=== PATIENT | male | born 1985 | race Caucasian/White ===

== ENCOUNTER 2016-11-17 21:01 | Emergency (ER) | payer OTHER ==
[~2016-11-17] VITALS: Ht 175.3 cm; Wt 55.6 kg
[~2016-11-17 21:01] MED LIST: ALBU18HF IH; BENZ100C PO; CLIN300C8 PO; CYCL-331 PO; CYCL5TAB PO; ERYT1OIN6 OD; HYDR-971 PO; TRAM50TA PO
[2016-11-17 21:15] VITALS: BP 131/89
--- NOTE | 2016-11-18 00:56 | ED.ADGEN ---
Past History Past Medical History: Anxiety, Bronchitis, Migraines Past Surgical History: Other Smoking: Cigarettes Alcohol Use: None Drug Use: None Adult General Chief Complaint Chief Complaint Dizziness HPI HPI Patient is a 31-year-old male with history of anxiety presents with dizziness while out this evening. Patient states he felt near syncopal with blurred vision while playing pool and a [place]. Patient was outdoors in a cool or worse symptoms improved. They have continued to improve while in the emergency department. No history of diabetes or hypoglycemia. Patient denies chest pain, chest tightness and palpitations. History of tension headaches. Patient reports mild headache which started after ED arrival. No other symptoms or complaints. Review of Systems Review of Systems Review symptoms as per history of present illness. Allergies Allergies Allergies Coded Allergies Type Severity Reaction Last Updated Verified Penicillins Allergy Intermediate Swelling 10/06/13 Yes amoxicillin Allergy Intermediate tongue swells up/SOA/Rash 10/06/13 Yes Physical Exam Physical Exam Constitutional: Well developed, well nourished, no acute distress, non-toxic appearance. [] HENT: Normocephalic, atraumatic, bilateral external ears normal, oropharynx moist, no oral exudates, nose normal. [] Eyes: PERRLA, EOMI, conjunctiva normal, no discharge. [] Neck: Normal range of motion, no tenderness, supple, no stridor. [] Cardiovascular:Heart rate regular rhythm, no murmur [] Lungs & Thorax: Bilateral breath sounds clear to auscultation [] Abdomen: Bowel sounds normal, soft, no tenderness, no masses, no pulsatile masses. [] Skin: Warm, dry, no erythema, no rash. [] Back: No tenderness, no CVA tenderness. [] Extremities: No tenderness, no cyanosis, no clubbing, ROM intact, no edema. [] Neurologic: Alert and oriented X 3, normal motor function, normal sensory function, no focal deficits noted. [] Psychologic: Affect normal, judgement normal, mood normal. [] Current Patient Data Vital Signs Vital Signs Date Time Temp Pulse Resp B/P (MAP) Pulse Ox O2 Delivery O2 Flow Rate FiO2 11/17/16 21:15 97.7 94 12 100 Room Air Lab Results Laboratory Tests Test 11/17/16 21:33 Glucose (Fingerstick) 93 mg/dL (70-99) EKG EKG [EKG: Normal sinus rhythm, no acute ST-T wave changes, rate 83.] Radiology/Procedures Radiology/Procedures [] Course & Med Decision Making Course & Med Decision Making Pertinent Labs and Imaging studies reviewed. (See chart for details) [EKG and blood sugar reassuring. Patient minimally symptomatic in the ED. No comorbidities, denies drug use. Recommend home rest increase fluids and PCP follow-up if symptoms persist. Return precautions reviewed.] Final Impression Final Impression [1 dizziness] Problems: Dragon Disclaimer Dragon Disclaimer This electronic medical record was generated, in whole or in part, using a voice recognition dictation system. SILVANO MIDDLETON DO November 18, 2016 00:56
--- NOTE | 2016-11-18 01:36 | EKG ---
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
== END 2016-11-17 22:14 | disposition home or self-care (01) ==
LOC: ER 21:01
DX: R42 Dizziness and giddiness (principal); F41.9 Anxiety disorder, unspecified; G43.909 Migraine, unspecified, not intractable, without status migrainosus; F17.210 Nicotine dependence, cigarettes, uncomplicated; Z88.1 Allergy status to other antibiotic agents; Z88.0 Allergy status to penicillin
CPT/HCPCS: 82947; 93005; 99283-25

== ENCOUNTER 2016-11-20 13:08 | Emergency (ER) | payer OTHER ==
[~2016-11-20] VITALS: Ht 175.3 cm; Wt 55.6 kg
[2016-11-20 13:17] VITALS: BP 110/58
--- NOTE | 2016-11-20 13:39 | ED.ADGEN ---
Past History Past Medical History: Anxiety, Bronchitis, Migraines Past Surgical History: Other Smoking: Cigarettes Alcohol Use: None Drug Use: None Adult General HPI HPI Patient is a [31-year-old man, history of migraine headaches, anxiety, bronchitis, tobacco abuse, who presents to the emergency department with complaint of pleuritic chest pain that began this morning, associated with lightheadedness, dizziness and mild shortness of breath. Patient states that he has been feeling lightheaded and slightly dizzy since Sunday, he was seen in the emergency department on Sunday at [facility], at that time he received ECG, and neck checked was unremarkable, as is feeling better he was discharged home. He states that he began experiencing a sharp shooting chest pain located in the center of his chest related to left-sided his chest around 9 :30 this morning, which was intermittent, was worsened with inspiration, and was associated with similar symptoms that he experienced since Sunday. He denies any focal weakness, numbness, tingling, any injuries, any nausea or vomiting, any swelling extremities, any drug or alcohol abuse, any GI or complaints. States he experienced similar symptoms about 2 years ago, at that time he was told he was experiencing symptoms due to an anxiety attack. He states he is not feeling anxious at this time. Patient was given 324 mg of chewable aspirin by EMS en route to the emergency department. He states that he felt very lightheaded shortly before EMS was contacted, although he did not actually pass out, he did "fall back against the wall". No seizure activity, no other complaints. He has not taken any other medications prior to coming to the ED. No recent travel or surgery, no history of DVT or PE in himself or family members, no history of early cardiac disease or sudden cardiac in family members. Review of Systems Review of Systems Constitutional: Denies fever or chills [] Eyes: Denies change in visual acuity, redness, or eye pain [] HENT: Denies nasal congestion or sore throat [] Respiratory: Denies cough, complaining of mild shortness of breath associated with sharp chest pain and is pleuritic in nature.] Cardiovascular: Chest pain located in the left and middle chest, worse with deep inspiration, nonradiating. GI: Denies abdominal pain, nausea, vomiting, bloody stools or diarrhea [] : Denies dysuria or hematuria [] Musculoskeletal: Denies back pain or joint pain [] Integument: Denies rash or skin lesions [] Neurologic: Denies headache, focal weakness or sensory changes [] Endocrine: Denies polyuria or polydipsia [] Current Medications Current Medications Current Medications Medications (Trade) Dose Ordered Sig/Alexei Start Time Stop Time Status Last Admin Dose Admin Fentanyl Citrate (Fentanyl 2ml Vial) 25 mcg PRN Q15MIN PRN 11/20/16 13:45 11/21/16 13:44 11/20/16 16:01 25 MCG Naproxen (Naprosyn) 250 mg 1X ONCE 11/20/16 16:45 11/20/16 16:46 Nitroglycerin (Nitrostat) 0.4 mg 1X ONCE 11/20/16 13:45 11/20/16 13:46 DC Allergies Allergies Allergies Coded Allergies Type Severity Reaction Last Updated Verified Penicillins Allergy Intermediate Swelling 10/06/13 Yes amoxicillin Allergy Intermediate tongue swells up/SOA/Rash 10/06/13 Yes Physical Exam Physical Exam Constitutional: Well developed, well nourished, no acute distress, non-toxic appearance. [] HENT: Normocephalic, atraumatic, bilateral external ears normal, oropharynx moist, no oral exudates, nose normal. [] Eyes: PERRLA, EOMI, conjunctiva normal, no discharge. [] Neck: Normal range of motion, no tenderness, supple, no stridor. [] Cardiovascular:Heart rate regular rhythm, no murmur , S1, S2, rubs or gallops. [ ] Lungs & Thorax: Bilateral breath sounds clear to auscultation , no wheezing, rhonchi, rales. Patient with chest wall tenderness located over the left chest, no crepitus, no lesions or rashes identified. Abdomen: Bowel sounds normal, soft, no tenderness, no rebound, no rigidity, no guarding, no masses, no pulsatile masses. [] Skin: Warm, dry, no erythema, no rash. [] Back: No tenderness, no CVA tenderness. [] Extremities: No tenderness, no cyanosis, no clubbing, ROM intact, no edema. Negative Homans sign. [] Neurologic: Alert and oriented X 3, normal motor function, normal sensory function, no focal deficits noted. [] Psychologic: Affect normal, judgement normal, mood normal. [] Current Patient Data Vital Signs Vital Signs Date Time Temp Pulse Resp B/P (MAP) Pulse Ox O2 Delivery O2 Flow Rate FiO2 11/20/16 16:01 20 97 Room Air 11/20/16 13:17 97.7 83 Lab Results Laboratory Tests Test 11/20/16 14:07 11/20/16 15:49 White Blood Count 8.3 x10^3/uL (4.0-11.0) Red Blood Count 5.12 x10^6/uL (4.30-5.70) Hemoglobin 15.9 g/dL (13.0-17.5) Hematocrit 46.0 % (39.0-53.0) Mean Corpuscular Volume 90 fL (79-100) Mean Corpuscular Hemoglobin 31 pg (25-35) Mean Corpuscular Hemoglobin Concent 35 g/dL (31-37) Red Cell Distribution Width 13.2 % (11.5-14.5) Platelet Count 249 x10^3/uL (140-400) Neutrophils (%) (Auto) 78 % (31-73) H Lymphocytes (%) (Auto) 14 % (24-48) L Monocytes (%) (Auto) 7 % (0-9) Eosinophils (%) (Auto) 0 % (0-3) Basophils (%) (Auto) 0 % (0-3) Neutrophils # (Auto) 6.5 x10^3uL (1.8-7.7) Lymphocytes # (Auto) 1.2 x10^3/uL (1.0-4.8) Monocytes # (Auto) 0.6 x10^3/uL (0.0-1.1) Eosinophils # (Auto) 0.0 x10^3/uL (0.0-0.7) Basophils # (Auto) 0.0 x10^3/uL (0.0-0.2) Urine Collection Type Unknown Urine Color Yellow Urine Clarity Clear Urine pH 8.5 Urine Specific [place] 1.015 Urine Protein Neg (NEG-TRACE) Urine Glucose (UA) Neg mg/dL (NEG) Urine Ketones (Stick) Neg mg/dL (NEG) Urine Blood Neg (NEG) Urine Nitrite Neg (NEG) Urine Bilirubin Neg (NEG) Urine Urobilinogen Dipstick 0.2 mg/dL (0.2 mg/dL) Urine Leukocyte Esterase Neg (NEG) Urine RBC Rare /HPF (0-2) Urine WBC Rare /HPF (0-4) Urine Squamous Epithelial Cells Occ /LPF Urine Bacteria 0 /HPF (0-FEW) Sodium Level 140 mmol/L (136-145) Potassium Level 4.0 mmol/L (3.5-5.1) Chloride Level 103 mmol/L (98-107) Carbon Dioxide Level 26 mmol/L (21-32) Anion Gap 11 (6-14) Blood Urea Nitrogen 12 mg/dL (8-26) Creatinine 0.9 mg/dL (0.7-1.3) Estimated GFR (Cockcroft-Gault) 97.2 BUN/Creatinine Ratio 13 (6-20) Glucose Level 90 mg/dL (70-99) Calcium Level 9.5 mg/dL (8.5-10.1) Total Bilirubin 0.4 mg/dL (0.2-1.0) Aspartate Amino Transferase (AST) 13 U/L (15-37) L Alanine Aminotransferase (ALT) 21 U/L (16-63) Alkaline Phosphatase 53 U/L (46-116) Troponin I Quantitative < 0.017 ng/mL (0-0.055) MU-Qiq-P-Type Natriuretic Peptide 16 pg/mL (0-124) Total Protein 7.5 g/dL (6.4-8.2) Albumin 4.6 g/dL (3.4-5.0) Albumin/Globulin Ratio 1.6 (1.0-1.7) Lipase 89 U/L (73-393) Urine Opiates Screen Neg (NEG) Urine Methadone Screen Neg (NEG) Urine Barbiturates Neg (NEG) Urine Phencyclidine Screen Neg (NEG) Urine Amphetamine/Methamphetamine Neg (NEG) Urine Benzodiazepines Screen Neg (NEG) Urine Cocaine Screen Neg (NEG) Urine Cannabinoids Screen Neg (NEG) Urine Ethyl Alcohol Neg (NEG) POC Troponin I 0.00 ng/ml (<0.08) EKG EKG EC: Sinus rhythm, heart rate 88 beats minute, upright axis, QTC of 390, ID 142, QRS of 82, no ST rushes noted, patient with contour normality is of the ST segment which are consistent with his slim body habitus and age, when compared to ECG from 11/17/2016, no significant changes identified. As interpreted by me. Radiology/Procedures Radiology/Procedures [][address] [address] IMAGING REPORT Signed PATIENT: SALEEM ANTHONY ACCOUNT: [id number] : 1985 LOCATION: ER AGE: 31 SEX: M EXAM STATUS: REG ER ORD. PHYSICIAN: ANDREIA CHANEY DO REASON: CP PROCEDURE: CHEST PA & LATERAL PA and lateral chest. History: Chest pain, weakness and dizziness PA and lateral views were taken of the chest. Lungs are free of infiltrates. Heart is normal in size. There is slight scoliosis. There is no pleural effusion. Impression: 1. No acute chest disease. DICTATED AND SIGNED BY: LULA BAZAN MD DATE: 11/20/16 1344 CC: ANDREIA CHANEY DO; BECKA CRAWFORD ~ Course & Med Decision Making Course & Med Decision Making Pertinent Labs and Imaging studies reviewed. (See chart for details) Patient appears mildly anxious in the emergency department, the pain is reproducible palpation of the chest, but otherwise he states he is comfortable at this time. Chest x-ray is unremarkable, as is ECG, and unchanged from prior, ST contours are consistent with patient's age and body habitus. Laboratory studies unremarkable in the emergency department, patient with an initial negative troponin, and a repeat 3 hour troponin that was also negative. He remains comfortable in the emergency department. I did discuss findings as above with patient, he now has mother at bedside in the emergency department. After discussion, patient states he would prefer to follow-up with Dr. Wren of cardiology for additional evaluation and with his primary care provider which he states he can do tomorrow. I do not believe that there is any acutely concerning cardiac or pulmonary cause for the patient's symptoms, and outpatient follow-up would be appropriate. We did discuss concerning symptoms that prompt return to the emergency department, patient received naproxen and cyclobenzaprine to be used as directed as needed, and to return to the ED if any new or concerning symptoms to develop. Patient and mother bedside voice understanding and agreement with plan as stated. Patient discharged home in stable condition with his mother. Final Impression Final Impression [] Problems: Dragon Disclaimer Dragon Disclaimer This electronic medical record was generated, in whole or in part, using a voice recognition dictation system. Departure: Impression: Primary Impression: Chest pain Additional Impression: Dizziness Disposition: 01 HOME, SELF-CARE Condition: IMPROVED Scripts Cyclobenzaprine Hcl (CYCLOBENZAPRINE HCL) 5 Mg Tablet 1 TAB PO TID Y for PAIN, #12 TAB Prov: ANDREIA CHANEY DO 11/20/16 Naproxen (NAPROXEN) 250 Mg Tablet 250 MG PO PRN BID Y for PAIN, #10 TAB Prov: ANDREIA CHANEY DO 11/20/16 ANDREIA CHANEY DO November 20, 2016 13:39
[2016-11-20] MEDS ORDERED: fentaNYL PF 100 MCG/2 ML VIAL IV PRN (13:45)
[2016-11-20] MEDS ORDERED: NITROGLYCERIN SUBLINGUAL 0.4 MG BOTTLE OF 25. SL ONE (13:45)
--- NOTE | 2016-11-20 13:48 | RAD ---
PA and lateral chest. History: Chest pain, weakness and dizziness PA and lateral views were taken of the chest. Lungs are free of infiltrates. Heart is normal in size. There is slight scoliosis. There is no pleural effusion. Impression: 1. No acute chest disease.
[2016-11-20 14:20] LABS: BASO % 0 % (0-3); EOS % 0 % (0-3); HEMOGLOBIN 15.9 g/dL (13.0-17.5); LYMPH # 1.2 x10^3/uL (1.0-4.8); LYMPH % 14 % (24-48); MEAN CORPUSCULAR HEMOGLOBIN 31 pg (25-35); MEAN CORPUSCULAR HGB CONC 35 g/dL (31-37); MEAN CORPUSCULAR VOLUME 90 fL (79-100); MONO # 0.6 x10^3/uL (0.0-1.1); MONO % 7 % (0-9); NEUT # 6.5 x10^3uL (1.8-7.7); NEUT % 78 % (31-73); PLATELET COUNT 249 x10^3/uL (140-400); RED BLOOD COUNT 5.12 x10^6/uL (4.30-5.70); RED CELL DISTRIBUTION WIDTH 13.2 % (11.5-14.5); WHITE BLOOD COUNT 8.3 x10^3/uL (4.0-11.0)
[2016-11-20 14:26] LABS: BARBITURATES NEG (NEG); BENZODIAZEPINES NEG (NEG); CANNABINOIDS NEG (NEG); COCAINE NEG (NEG); METHADONE NEG (NEG); OPIATES NEG (NEG); PHENCYCLIDINE NEG (NEG)
[2016-11-20 14:27] LABS: AMPHETAMINE/METHAMPHETAMINE NEG (NEG)
[2016-11-20 14:33] LABS: BILIRUBIN,URINE NEG (NEG); CLARITY,URINE CLEAR; COLOR,URINE YELLOW; GLUCOSE,URINE NEG (NEG); NITRITE,URINE NEG (NEG); UROBILINOGEN,URINE 0.2 mg/dL (0.2 mg/dL)
[2016-11-20 14:34] LABS: BACTERIA,URINE 0 /HPF (0-FEW); RBC,URINE RARE /HPF (0-2); SQUAMOUS EPITHELIAL CELL,UR OCC /LPF; WBC,URINE RARE /HPF (0-4)
[2016-11-20 14:38] LABS: ALBUMIN 4.6 g/dL (3.4-5.0); ALBUMIN/GLOBULIN RATIO 1.6 (1.0-1.7); CALCIUM 9.5 mg/dL (8.5-10.1); CREATININE 0.9 mg/dL (0.7-1.3); GFR 97.2; TOTAL BILIRUBIN 0.4 mg/dL (0.2-1.0); TOTAL PROTEIN 7.5 g/dL (6.4-8.2)
--- NOTE | 2016-11-20 15:52 | EKG ---
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
[2016-11-20] MEDS ORDERED: CYCL5TAB PO (16:28)
[2016-11-20] MEDS ORDERED: NAPR250T2 PO (16:28)
[2016-11-20] MEDS ORDERED: NAPROXEN 500 MG TABLET PO ONE (16:45)
== END 2016-11-20 16:45 | disposition home or self-care (01) ==
LOC: ER 13:08
DX: R07.89 Other chest pain (principal); R42 Dizziness and giddiness; G43.909 Migraine, unspecified, not intractable, without status migrainosus; F17.210 Nicotine dependence, cigarettes, uncomplicated; Z88.0 Allergy status to penicillin; Z88.1 Allergy status to other antibiotic agents
CPT/HCPCS: 36415; 71020; 80053; 80305; 81001; 83690; 83880; 84484; 85027; 93005; 96374; 99285; J3010; G0481

== ENCOUNTER 2017-01-30 20:34 | Emergency (ER) | payer SELFPAY ==
[~2017-01-30] VITALS: Ht 175.3 cm; Wt 55.6 kg
[~2017-01-30 20:34] MED LIST changes: +NAPR250T2 PO
[2017-01-30] MEDS ORDERED: SERT50TA PO (21:20)
[2017-01-30] MEDS ORDERED: IBUP800T19 PO (21:20)
[2017-01-30] MEDS ORDERED: TRAZ50TA15 PO (21:20)
[2017-01-30] MEDS ORDERED: ALBUTEROL SULFATE 8GM INHALER. ONE (21:37)
--- NOTE | 2017-01-30 21:40 | ED.ADGEN ---
Past History Past Medical History: Anxiety, Bronchitis, Migraines Past Surgical History: Other Smoking: Cigarettes Alcohol Use: None Drug Use: None Adult General Chief Complaint Chief Complaint SOA HPI HPI Patient is a 31 y/o male with hx of sore throat, diff swallowing, soa x 3 days. he has hx of bronchitis. he has a fractured tooth but currently it is not hurting. no cough. no fever. no sick contacts. Review of Systems Review of Systems Constitutional: Denies fever or chills [] Eyes: Denies change in visual acuity, redness, or eye pain [] HENT: Denies nasal congestion, DIFFiculty swallowing, not sore throat [] Respiratory: cough and soa Cardiovascular: No additional information not addressed in HPI [] GI: Denies abdominal pain, nausea, vomiting, bloody stools or diarrhea [] : Denies dysuria or hematuria [] Musculoskeletal: Denies back pain or joint pain [] Integument: Denies rash or skin lesions [] Neurologic: Denies headache, focal weakness or sensory changes [] Endocrine: Denies polyuria or polydipsia [] Current Medications Current Medications Current Medications Medications (Trade) Dose Ordered Sig/Alexei Start Time Stop Time Status Last Admin Dose Admin Albuterol Sulfate (Ventolin Hfa) 1 puff 1X ONCE 01/30/17 22:15 01/30/17 22:15 DC Trimethoprim/ Sulfamethoxazole (Starter Pack - Bactrim Ds) 1 startpack 1X ONCE 01/30/17 22:00 01/30/17 22:00 DC Allergies Allergies Allergies Coded Allergies Type Severity Reaction Last Updated Verified amoxicillin Allergy Severe tongue swells up/SOA/Rash 01/30/17 Yes Penicillins Allergy Intermediate Swelling 01/30/17 Yes Physical Exam Physical Exam Constitutional: Well developed, well nourished, no acute distress, non-toxic appearance. [] HENT: Normocephalic, atraumatic, bilateral external ears normal, oropharynx moist, no oral exudates, nose normal. dental pain that has resolved to right inferior 3rd mola. no gingival swelling Eyes: PERRLA, EOMI, conjunctiva normal, no discharge. [] Neck: Normal range of motion, no tenderness, supple, no stridor. cervical, anterior, +lympahadenopathy Cardiovascular:Heart rate regular rhythm, no murmur [] Lungs & Thorax: wheezing bilat, mild Abdomen: Bowel sounds normal, soft, no tenderness, no masses, no pulsatile masses. [] Skin: Warm, dry, no erythema, no rash. [] Back: No tenderness, no CVA tenderness. [] Extremities: No tenderness, no cyanosis, no clubbing, ROM intact, no edema. [] Neurologic: Alert and oriented X 3, normal motor function, normal sensory function, no focal deficits noted. [] Psychologic: Affect normal, judgement normal, mood normal. [] EKG EKG [] Radiology/Procedures Radiology/Procedures [] Course & Med Decision Making Course & Med Decision Making Pertinent Labs and Imaging studies reviewed. (See chart for details) []will start inhaler for wheezing. he can use otc nasal spray. he can start bactrim ds for tooth. he is allergic to pcn, he is on zoloft and trazadone so mycins will react. he can't afford cylines to will try bactrim. he has angioedema to pcn so won't try keflex Final Impression Final Impression bronchospasm tooth fracture[] Problems: Dragon Disclaimer Dragon Disclaimer This electronic medical record was generated, in whole or in part, using a voice recognition dictation system. Departure Time of Disposition: 21:38 Disposition: 01 HOME, SELF-CARE Condition: STABLE Patient Instructions: Bronchospasm, Adult Additional Instructions: use inhaler for wheezing and difficulty breathing. you can use flonase over-the- counter for congestion. start bactrim IF tooth begins to hurt. see dentist to pull tooth. return if symptoms worsen. Prescriptions bactrim AUREA LOUIE MD Jan 30, 2017 21:40
[2017-01-30] MEDS ORDERED: SULF1TAB24 PO (21:41)
[2017-01-30 21:55] VITALS: BP 117/68
[2017-01-30] MEDS ORDERED: SMX/TMP 800/160MG 2TABLET STARTPACK. PO ONE (22:00)
[2017-01-30] MEDS ORDERED: ALBUTEROL SULFATE 8GM INHALER. INH ONE (22:15)
== END 2017-01-30 21:55 | disposition home or self-care (01) ==
LOC: ER 20:34
DX: J98.01 Acute bronchospasm (principal); S02.5XXA Fracture of tooth (traumatic), initial encounter for closed fracture; F17.210 Nicotine dependence, cigarettes, uncomplicated; G43.909 Migraine, unspecified, not intractable, without status migrainosus; Z88.0 Allergy status to penicillin; Z88.1 Allergy status to other antibiotic agents; X58.XXXA Exposure to other specified factors, initial encounter; Y93.89 Activity, other specified; Y99.8 Other external cause status; Y92.89 Other specified places as the place of occurrence of the external cause
CPT/HCPCS: 99281

== ENCOUNTER 2017-07-30 08:59 | Emergency (ER) | payer MEDICARE ==
[~2017-07-30] VITALS: Ht 175.3 cm; Wt 56.7 kg
[~2017-07-30 08:59] MED LIST changes: +IBUP800T19 PO; -NAPR250T2 PO; +NAPR250T6 PO; +SERT50TA PO; +SULF1TAB24 PO; +TRAZ50TA15 PO
--- NOTE | 2017-07-30 09:03 | PHYS DOC ---
General Stated Complaint: HEADACHE Time Seen by MD: 09:01 Source: patient Exam Limitations: no limitations Problems: History of Present Illness Initial Comments Patient is a 32-year-old male coming to the ED complaining of fever headache and body aches. Patient states that he began feeling ill yesterday, he had chills and sweats with generalized body aches and headache. He has history of migraines however current headache symptoms are different than prior migraine exacerbations. He says his headache is primarily when his fever is elevated, here in the ED he states that his headache is minimal and he is afebrile on arrival. 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 Timing/Duration: 24 hours Severity: moderate Modifying Factors: improves with medication Associated Symptoms: fever/chills, headaches, malaise, other Allergies: Coded Allergies: amoxicillin (Verified Allergy, Severe, tongue swells up/SOA/Rash, 01/30/17) Penicillins (Verified Allergy, Intermediate, Swelling, 01/30/17) RASH, TONGUE SWELLS Past Medical History Medical History: no pertinent history, other (anxiety, bronchitis, migraines) Surgical History: noncontributory Social History Smoker: cigarettes Alcohol: none Drugs: none Review of Systems Constitutional: see HPI Respiratory: denies cough, denies shortness of breath Cardiovascular: denies chest pain, denies palpitations Gastrointestinal: denies abdominal pain, denies nausea, denies vomiting Genitourinary: denies dysuria, denies frequency, denies hematuria Musculoskeletal: denies back pain, denies joint swelling, muscle pain, denies neck pain (domestic up) Psychiatric/Neurological: headache, denies numbness, denies paresthesia, denies weakness Hematologic/Lymphatic: denies blood clots, denies easy bleeding, denies easy bruising Physical Exam General Appearance: WD/WN, no apparent distress Eyes: bilateral eye normal inspection, bilateral eye PERRL, bilateral eye EOMI Ear, Nose, Throat: hearing grossly normal, normal ENT inspection Neck: non-tender, supple Respiratory: normal breath sounds, no respiratory distress Cardiovascular: normal peripheral pulses, regular rate, rhythm Gastrointestinal: non tender, soft Back: no CVA tenderness, no vertebral tenderness Extremities: non-tender, normal inspection 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 Toradol 60 mg IM given. Departure Time of Disposition: 10:49 Disposition: 01 HOME, SELF-CARE Diagnosis: febrile illness Condition: GOOD Patient Instructions: Influenza, Adult Additional Instructions: Please review the patient education materials given by ED staff. As discussed, sometimes early in the process influenza testing can be falsely negative. Abstain from work and or school until at least 24 hours after last fever. Aggressive hydration with Gatorade and water. Take your home sumatriptan as needed. [id number] Tylenol and ibuprofen as needed. Follow-up with your doctor in 3-5 days if not improving. Return to ED with new or changing symptoms. CLAIRE VOGEL DO Jul 30, 2017 09:03
[2017-07-30] MEDS ORDERED: ACETAMINOPHEN 500 MG TABLET PO ONE (10:00)
[2017-07-30 10:36] LABS: INFLUENZA A PATIENT NEGATIVE (NEGATIVE); INFLUENZA B PATIENT NEGATIVE (NEGATIVE)
[2017-07-30 11:15] VITALS: BP 99/65
[2017-07-30] MEDS ORDERED: KETOROLAC 60 MG/2 ML VIAL. IM ONE (11:15)
== END 2017-07-30 11:18 | disposition home or self-care (01) ==
LOC: ER 08:59
DX: R50.9 Fever, unspecified (principal); M79.1 Myalgia; G43.909 Migraine, unspecified, not intractable, without status migrainosus; F17.210 Nicotine dependence, cigarettes, uncomplicated; Z88.0 Allergy status to penicillin; Z88.1 Allergy status to other antibiotic agents
CPT/HCPCS: 87804; 96372; 99284; J1885

== ENCOUNTER 2017-08-20 13:44 | Emergency (ER) | payer MEDICARE ==
[~2017-08-20] VITALS: Ht 175.3 cm; Wt 54.4 kg
[2017-08-20 13:55] VITALS: BP 103/66
[2017-08-20] MEDS ORDERED: NAPR-683 PO (14:25)
[2017-08-20] MEDS ORDERED: CLIN150C14 PO (14:25)
--- NOTE | 2017-08-20 14:25 | PHYS DOC ---
Past History Past Medical History: Anxiety, Bronchitis, Depression, Migraines Past Surgical History: Other Smoking: Cigarettes Alcohol Use: None Drug Use: None Adult General Chief Complaint Chief Complaint: DENTAL PROBLEM HPI HPI 32-year-old smoker male patient complaining of upper and lower wisdom teeth pain for several months that getting worse for the last couple days as a constant pain with radiation to his jaw without fever and chills and problems with swallowing Review of Systems Review of Systems Constitutional: Denies fever or chills [] Eyes: Denies change in visual acuity, redness, or eye pain HENT: Denies nasal congestion or sore throat, reports tooth pain [] Respiratory: Denies cough or shortness of breath [] Cardiovascular: No additional information not addressed in HPI [] GI: Denies abdominal pain, nausea, vomiting, bloody stools or diarrhea [] : Denies dysuria or hematuria [] Musculoskeletal: Denies back pain or joint pain [] Integument: Denies rash or skin lesions [] Neurologic: Denies headache, focal weakness or sensory changes [] Endocrine: Denies polyuria or polydipsia [] All other systems were reviewed and found to be within normal limits, except as documented in this note. Allergies Allergies Allergies Coded Allergies Type Severity Reaction Last Updated Verified amoxicillin Allergy Severe tongue swells up/SOA/Rash 01/30/17 Yes Penicillins Allergy Intermediate Swelling 01/30/17 Yes Physical Exam Physical Exam Constitutional: Well nourished, mild distress, non-toxic appearance. [] HENT: Normocephalic, atraumatic, bilateral external ears normal, oropharynx moist, no oral exudates, upper and lower wisdom teeth tenderness and swelling of the gum without sign of abscess Eyes: PERRLA, EOMI, conjunctiva normal, no discharge. [] Neck: Normal range of motion, no tenderness, supple, no stridor. [] Cardiovascular:Heart rate regular rhythm, no murmur [] Current Patient Data Vital Signs Vital Signs Date Time Temp Pulse Resp B/P (MAP) Pulse Ox O2 Delivery O2 Flow Rate FiO2 08/20/17 13:55 98.1 89 18 99 Room Air EKG EKG [] Radiology/Procedures Radiology/Procedures [] Course & Med Decision Making Course & Med Decision Making discharge: I've spoken with the patient and/or caregivers. I've explained the patient's condition, diagnosis and treatment plan based on information available to me at this time. I've answered the patient's and/or caregivers questions and addressed any concerns. The patient and/or caregivers have a good understanding the patient's diagnosis, condition and treatment plan as can be expected at this point. Vital signs have been stabilized. The patient's condition is stable for discharge from the emergency department. The patient will pursue further outpatient evaluation with her primary care provider or other designated consulting physician as outlined in the discharge instructions. Patient and/or caregivers are agreeable to this plan of care and follow-up instructions have been explained in detail. The patient and/or caregivers have received these instructions in written format and expressed understanding of these discharge instructions. The patient and her caregivers are aware that if any significant change in condition or worsening of symptoms should prompt him to immediately return to this of the closest emergency department. If an emergent department is not readily available I would encourage him to call 911. Dragon Disclaimer Dragon Disclaimer This electronic medical record was generated, in whole or in part, using a voice recognition dictation system. Departure Departure: Impression: Primary Impression: Dentalgia Additional Impressions: Tobacco abuse Tobacco abuse counseling Disposition: HOME, SELF-CARE (At 1430) Condition: IMPROVED Referrals: BECKA CRAWFORD (PCP) Patient Instructions: Dental Abscess, Smoking Cessation, Toothache-Brief Additional Instructions: Quit smoking Follow-up with your dentist in 2 or 3 days Scripts Naproxen (NAPROSYN) 500 Mg Tablet 1 TAB PO BID, #20 TAB 2 Refills Prov: LINDSAY MONSALVE MD 08/20/17 Clindamycin Hcl (CLINDAMYCIN HCL) 150 Mg Capsule 1 CAP PO TID, #30 CAP Prov: LINDSAY MONSALVE MD 08/20/17 Problem Qualifiers LINDSAY MONSALVE MD Aug 20, 2017 14:25
[2017-08-20] MEDS ORDERED: IBUPROFEN 400 MG TABLET. PO ONE (14:45)
== END 2017-08-20 14:40 | disposition home or self-care (01) ==
LOC: ER 13:44
DX: K08.89 Other specified disorders of teeth and supporting structures (principal); G43.909 Migraine, unspecified, not intractable, without status migrainosus; F17.210 Nicotine dependence, cigarettes, uncomplicated; Z88.0 Allergy status to penicillin; Z88.1 Allergy status to other antibiotic agents
CPT/HCPCS: 99283

== ENCOUNTER 2018-01-21 16:22 | Emergency (ER) | payer MEDICARE ==
[~2018-01-21] VITALS: Ht 175.3 cm; Wt 54.4 kg
[~2018-01-21 16:22] MED LIST changes: +CLIN150C14 PO; +NAPR-683 PO; +TRAZ-85 PO; -TRAZ50TA15 PO
[2018-01-21] MEDS ORDERED: ONDANSETRON PF 4 MG/2 ML VIAL. IV ONE (17:30)
[2018-01-21 17:49] LABS: BASO # 0.1 x10^3/uL (0.0-0.2); BASO % 1 % (0-3); EOS # 0.1 x10^3/uL (0.0-0.7); EOS % 1 % (0-3); HEMATOCRIT 42.4 % (39.0-53.0); HEMOGLOBIN 14.5 g/dL (13.0-17.5); LYMPH % 27 % (24-48); MEAN CORPUSCULAR HEMOGLOBIN 31 pg (25-35); MEAN CORPUSCULAR HGB CONC 34 g/dL (31-37); MEAN CORPUSCULAR VOLUME 89 fL (79-100); MONO # 0.5 x10^3/uL (0.0-1.1); MONO % 7 % (0-9); NEUT # 4.8 x10^3uL (1.8-7.7); NEUT % 64 % (31-73); PLATELET COUNT 250 x10^3/uL (140-400); RED BLOOD COUNT 4.75 x10^6/uL (4.30-5.70); RED CELL DISTRIBUTION WIDTH 13.2 % (11.5-14.5); WHITE BLOOD COUNT 7.4 x10^3/uL (4.0-11.0)
[2018-01-21 18:01] LABS: ALBUMIN 4.1 g/dL (3.4-5.0); ALBUMIN/GLOBULIN RATIO 1.3 (1.0-1.7); CALCIUM 9.1 mg/dL (8.5-10.1); CREATININE 0.9 mg/dL (0.7-1.3); GFR 96.6; POTASSIUM 4.9 mmol/L (3.5-5.1); TOTAL BILIRUBIN 0.5 mg/dL (0.2-1.0); TOTAL PROTEIN 7.2 g/dL (6.4-8.2)
[2018-01-21 18:08] LABS: BILIRUBIN,URINE NEG (NEG); CLARITY,URINE CLEAR; COLOR,URINE YELLOW; GLUCOSE,URINE NEG (NEG); NITRITE,URINE NEG (NEG); RBC,URINE 0 /HPF (0-2); UROBILINOGEN,URINE 0.2 mg/dL (0.2 mg/dL); WBC,URINE RARE /HPF (0-4)
[2018-01-21 18:09] LABS: BACTERIA,URINE 0 /HPF (0-FEW); SQUAMOUS EPITHELIAL CELL,UR OCC /LPF
[2018-01-21] MEDS ORDERED: LIDO:MAALOX 1:1 20 ML SINGLE DOSE. PO ONE (18:15)
[2018-01-21 18:20] VITALS: BP 106/47
[2018-01-21] MEDS ORDERED: PROM25TA10 PO (18:22)
[2018-01-21] MEDS ORDERED: FAMO-63 PO (18:22)
--- NOTE | 2018-01-21 18:23 | ED.ADGEN ---
Past History Past Medical History: No Pertinent History Past Surgical History: No Surgical History Smoking: Cigarettes Alcohol Use: Occasionally Drug Use: None Adult General Chief Complaint Chief Complaint Epigastric pain and vomiting and diarrhea HPI HPI The patient had onset of abdominal cramping, vomiting, diarrhea after [facility] [employer] [facility]. Since then, he's had persistent diarrhea with epigastric discomfort. He denies any fevers or lower abdominal pain. Review of Systems Review of Systems Constitutional: Denies fever or chills Eyes: Denies change in visual acuity, redness, or eye pain HENT: Denies nasal congestion or sore throat Respiratory: Denies cough or shortness of breath Cardiovascular: Denies chest pain or palpitations GI: With abdominal pain, nausea, vomiting and diarrhea, no bloody stools : Denies dysuria or hematuria Musculoskeletal: Denies back pain or joint pain Integument: Denies rash or skin lesions Neurologic: Denies headache, focal weakness or sensory changes Endocrine: Denies polyuria or polydipsia All other systems were reviewed and found to be within normal limits, except as documented in this note. Current Medications Current Medications Current Medications Medications (Trade) Dose Ordered Sig/Alexei Start Time Stop Time Status Last Admin Dose Admin Multi-Ingredient Mouthwash/Gargle (Gi Cocktail) 20 ml 1X ONCE 01/21/18 18:15 01/21/18 18:28 DC 01/21/18 18:19 20 ML Ondansetron HCl (Zofran) 4 mg 1X ONCE 01/21/18 17:30 01/21/18 17:31 DC 01/21/18 17:34 4 MG Allergies Allergies Allergies Coded Allergies Type Severity Reaction Last Updated Verified amoxicillin Allergy Severe tongue swells up/SOA/Rash 01/21/18 Yes Penicillins Allergy Intermediate Swelling 01/30/17 Yes Physical Exam Physical Exam Constitutional: Well developed, well nourished, no acute distress, non-toxic appearance. HENT: Normocephalic, atraumatic, bilateral external ears normal, oropharynx moist, no oral exudates, nose normal. Eyes: PERRLA, EOMI, conjunctiva normal, no discharge. Neck: Normal range of motion, no tenderness, supple, no stridor. Cardiovascular:Heart rate regular rhythm, no murmur Lungs & Thorax: Bilateral breath sounds clear to auscultation Abdomen: Bowel sounds normal, soft, with epigastric tenderness, no rebound or guarding, no masses, no pulsatile masses. No lower quadrant tenderness or tenderness at McBurney's point Skin: Warm, dry, no erythema, no rash. Back: No tenderness, no CVA tenderness. Extremities: No tenderness, no cyanosis, no clubbing, ROM intact, no edema. Neurologic: Alert and oriented X 3, normal motor function, normal sensory function, no focal deficits noted. Psychologic: Affect normal, judgement normal, mood normal. Current Patient Data Vital Signs Vital Signs Date Time Temp Pulse Resp B/P (MAP) Pulse Ox O2 Delivery O2 Flow Rate FiO2 01/21/18 18:20 70 16 106/47 (66) 99 01/21/18 16:32 97.7 Room Air Lab Results Laboratory Tests Test 01/21/18 17:15 01/21/18 17:30 Urine Collection Type Unknown Urine Color Yellow Urine Clarity Clear Urine pH 7.0 Urine Specific Sharon 1.010 Urine Protein Neg (NEG-TRACE) Urine Glucose (UA) Neg mg/dL (NEG) Urine Ketones (Stick) Neg mg/dL (NEG) Urine Blood Neg (NEG) Urine Nitrite Neg (NEG) Urine Bilirubin Neg (NEG) Urine Urobilinogen Dipstick 0.2 mg/dL (0.2 mg/dL) Urine Leukocyte Esterase Neg (NEG) Urine RBC 0 /HPF (0-2) Urine WBC Rare /HPF (0-4) Urine Squamous Epithelial Cells Occ /LPF Urine Bacteria 0 /HPF (0-FEW) White Blood Count 7.4 x10^3/uL (4.0-11.0) Red Blood Count 4.75 x10^6/uL (4.30-5.70) Hemoglobin 14.5 g/dL (13.0-17.5) Hematocrit 42.4 % (39.0-53.0) Mean Corpuscular Volume 89 fL (79-100) Mean Corpuscular Hemoglobin 31 pg (25-35) Mean Corpuscular Hemoglobin Concent 34 g/dL (31-37) Red Cell Distribution Width 13.2 % (11.5-14.5) Platelet Count 250 x10^3/uL (140-400) Neutrophils (%) (Auto) 64 % (31-73) Lymphocytes (%) (Auto) 27 % (24-48) Monocytes (%) (Auto) 7 % (0-9) Eosinophils (%) (Auto) 1 % (0-3) Basophils (%) (Auto) 1 % (0-3) Neutrophils # (Auto) 4.8 x10^3uL (1.8-7.7) Lymphocytes # (Auto) 2.0 x10^3/uL (1.0-4.8) Monocytes # (Auto) 0.5 x10^3/uL (0.0-1.1) Eosinophils # (Auto) 0.1 x10^3/uL (0.0-0.7) Basophils # (Auto) 0.1 x10^3/uL (0.0-0.2) Sodium Level 137 mmol/L (136-145) Potassium Level 4.9 mmol/L (3.5-5.1) Chloride Level 104 mmol/L (98-107) Carbon Dioxide Level 27 mmol/L (21-32) Anion Gap 6 (6-14) Blood Urea Nitrogen 12 mg/dL (8-26) Creatinine 0.9 mg/dL (0.7-1.3) Estimated GFR (Cockcroft-Gault) 96.6 BUN/Creatinine Ratio 13 (6-20) Glucose Level 85 mg/dL (70-99) Calcium Level 9.1 mg/dL (8.5-10.1) Total Bilirubin 0.5 mg/dL (0.2-1.0) Aspartate Amino Transferase (AST) 28 U/L (15-37) Alanine Aminotransferase (ALT) 22 U/L (16-63) Alkaline Phosphatase 47 U/L (46-116) Total Protein 7.2 g/dL (6.4-8.2) Albumin 4.1 g/dL (3.4-5.0) Albumin/Globulin Ratio 1.3 (1.0-1.7) Lipase 230 U/L (73-393) Laboratory Tests Test 01/21/18 17:15 01/21/18 17:30 Urine Collection Type Unknown Urine Color Yellow Urine Clarity Clear Urine pH 7.0 Urine Specific Sharon 1.010 Urine Protein Neg Urine Glucose (UA) Neg mg/dL Urine Ketones (Stick) Neg mg/dL Urine Blood Neg Urine Nitrite Neg Urine Bilirubin Neg Urine Urobilinogen Dipstick 0.2 mg/dL Urine Leukocyte Esterase Neg Urine RBC 0 /HPF Urine WBC Rare /HPF Urine Squamous Epithelial Cells Occ /LPF Urine Bacteria 0 /HPF White Blood Count 7.4 x10^3/uL Red Blood Count 4.75 x10^6/uL Hemoglobin 14.5 g/dL Hematocrit 42.4 % Mean Corpuscular Volume 89 fL Mean Corpuscular Hemoglobin 31 pg Mean Corpuscular Hemoglobin Concent 34 g/dL Red Cell Distribution Width 13.2 % Platelet Count 250 x10^3/uL Neutrophils (%) (Auto) 64 % Lymphocytes (%) (Auto) 27 % Monocytes (%) (Auto) 7 % Eosinophils (%) (Auto) 1 % Basophils (%) (Auto) 1 % Neutrophils # (Auto) 4.8 x10^3uL Lymphocytes # (Auto) 2.0 x10^3/uL Monocytes # (Auto) 0.5 x10^3/uL Eosinophils # (Auto) 0.1 x10^3/uL Basophils # (Auto) 0.1 x10^3/uL Sodium Level 137 mmol/L Potassium Level 4.9 mmol/L Chloride Level 104 mmol/L Carbon Dioxide Level 27 mmol/L Anion Gap 6 Blood Urea Nitrogen 12 mg/dL Creatinine 0.9 mg/dL Estimated GFR (Cockcroft-Gault) 96.6 BUN/Creatinine Ratio 13 Glucose Level 85 mg/dL Calcium Level 9.1 mg/dL Total Bilirubin 0.5 mg/dL Aspartate Amino Transf (AST/SGOT) 28 U/L Alanine Aminotransferase (ALT/SGPT) 22 U/L Alkaline Phosphatase 47 U/L Total Protein 7.2 g/dL Albumin 4.1 g/dL Albumin/Globulin Ratio 1.3 Lipase 230 U/L Current Medications Medications (Trade) Dose Ordered Sig/Alexei Route PRN Reason Start Time Stop Time Status Last Admin Dose Admin Ondansetron HCl (Zofran) 4 mg 1X ONCE IV 01/21/18 17:30 01/21/18 17:31 DC 01/21/18 17:34 4 MG Multi-Ingredient Mouthwash/Gargle (Gi Cocktail) 20 ml 1X ONCE PO 01/21/18 18:15 01/21/18 18:28 DC 01/21/18 18:19 20 ML EKG EKG [] Radiology/Procedures Radiology/Procedures [address] [address] IMAGING REPORT Signed PATIENT: SALEEM ANTHONY ACCOUNT: [id number] : 1985 LOCATION: ER AGE: 32 SEX: M EXAM STATUS: DEP ER ORD. PHYSICIAN: NAILA TEJADA MD REASON: abdominal pain PROCEDURE: ACUTE ABDOMEN SERIES Acute abdomen series with chest, 3 views, 01/21/2018: HISTORY: Abdominal pain The abdominal gas pattern is unremarkable. There is no evidence of organomegaly or abnormal abdominal calcification. There is a slight thoracolumbar scoliosis. The heart size is normal. No pulmonary infiltrate is seen. There is no evidence of pleural fluid. IMPRESSION: No acute cardiopulmonary abnormality is detected. Electronically signed by: Kendell Jackson MD (01/22/2018 8:45 AM) [facility] DICTATED AND SIGNED BY: KENDELL JACKSON MD DATE: 01/22/18 0844 CC: BECKA CRAWFORD; NAILA TEJADA MD ~ Course & Med Decision Making Course & Med Decision Making Patient presents with epigastric pain vomiting and diarrhea DDx- gastroenteritis, IBD, Crohn's, GERD, pancreatitis, PUD, appendicitis The patient was stable in the ED improved after IV NS hydration, Zofran and GI cocktail. Labs were unremarkable with normal Lipase. Abdominal series x-ray were unremarkable. Patient had no lower abdominal tenderness, doubt acute appendicitis at this time. Patient was given results and advised to follow-up with PCP. Patient advised to return to the ED if he develops worse pain, vomiting or fevers. Patient given prescriptions of Phenergan and Pepcid Final Impression Final Impression Clinical Impression Epigastric Abdominal pain Vomiting Diarrhea Dragon Disclaimer Dragon Disclaimer This electronic medical record was generated, in whole or in part, using a voice recognition dictation system. Departure Departure: Impression: Primary Impression: Epigastric abdominal pain Additional Impression: Nausea vomiting and diarrhea Disposition: 01 HOME, SELF-CARE Condition: STABLE Referrals: GABBIE DORANTES MD Follow-up tomorrow for further evaluation Patient Instructions: Abdominal Pain (Nonspecific), Diarrhea, Diet for Diarrhea , Adult Additional Instructions: Follow-up with your primary doctor tomorrow for further evaluation Scripts Promethazine Hcl (PROMETHAZINE HCL) 25 Mg Tablet 1 TAB PO PRN Q6HRS, #8 TAB Prov: NAILA TEJADA MD 01/21/18 Famotidine (PEPCID) 20 Mg Tablet 1 TAB PO BID, #30 TAB 0 Refills Prov: NAILA TEJADA MD 01/21/18 NAILA TEJADA MD Jan 21, 2018 18:23
--- NOTE | 2018-01-22 08:48 | RAD ---
Acute abdomen series with chest, 3 views, 01/21/2018: HISTORY: Abdominal pain The abdominal gas pattern is unremarkable. There is no evidence of organomegaly or abnormal abdominal calcification. There is a slight thoracolumbar scoliosis. The heart size is normal. No pulmonary infiltrate is seen. There is no evidence of pleural fluid. IMPRESSION: No acute cardiopulmonary abnormality is detected. Electronically signed by: Kendell Jackson MD (01/22/2018 8:45 AM) [facility]
== END 2018-01-21 18:50 | disposition home or self-care (01) ==
LOC: ER 16:22
DX: R10.13 Epigastric pain (principal); R11.2 Nausea with vomiting, unspecified; R19.7 Diarrhea, unspecified; F17.210 Nicotine dependence, cigarettes, uncomplicated; Z88.1 Allergy status to other antibiotic agents; Z88.0 Allergy status to penicillin
CPT/HCPCS: 36415; 74022; 80053; 81001; 83690; 85025; 96374; 99285; J2405

== ENCOUNTER 2018-05-28 19:10 | Emergency (ER) | payer MEDICARE ==
[~2018-05-28] VITALS: Ht 175.3 cm; Wt 56.7 kg
[~2018-05-28 19:10] MED LIST changes: +FAMO-63 PO; +HYDR-3165 PO; -HYDR-971 PO; +PROM25TA10 PO
[2018-05-28 19:15] VITALS: BP 114/73
[2018-05-28] MEDS ORDERED: ACET-704 PO (19:29)
[2018-05-28] MEDS ORDERED: IBUP800T19 PO (19:29)
[2018-05-28] MEDS ORDERED: CLIN150C14 PO (19:29)
--- NOTE | 2018-05-28 19:30 | PHYS DOC ---
Adult General Chief Complaint Chief Complaint dental pain [facility] HPI chronic dental pain on right upper side , worse tonight, swelling Review of Systems Review of Systems Constitutional: Denies fever or chills [] Eyes: Denies change in visual acuity, redness, or eye pain [] HENT: Denies nasal congestion or sore throat [] Respiratory: Denies cough or shortness of breath [] Cardiovascular: No additional information not addressed in HPI [] GI: Denies abdominal pain, nausea, vomiting, bloody stools or diarrhea [] : Denies dysuria or hematuria [] Musculoskeletal: Denies back pain or joint pain [] Integument: Denies rash or skin lesions [] Neurologic: Denies headache, focal weakness or sensory changes [] Endocrine: Denies polyuria or polydipsia [] All other systems were reviewed and found to be within normal limits, except as documented in this note. Allergies Allergies Allergies Coded Allergies Type Severity Reaction Last Updated Verified amoxicillin Allergy Severe tongue swells up/SOA/Rash 01/21/18 Yes Penicillins Allergy Intermediate Swelling 01/30/17 Yes Physical Exam Physical Exam Constitutional: Well developed, well nourished, no acute distress, non-toxic appearance. [] HENT: Normocephalic, atraumatic, bilateral external ears normal, oropharynx moist, no oral exudates, nose normal. [] Eyes: PERRLA, EOMI, conjunctiva normal, no discharge. [] Neck: Normal range of motion, no tenderness, supple, no stridor. [] Cardiovascular:Heart rate regular rhythm, no murmur [] Lungs & Thorax: Bilateral breath sounds clear to auscultation [] Abdomen: Bowel sounds normal, soft, no tenderness, no masses, no pulsatile masses. [] Skin: Warm, dry, no erythema, no rash. [] Back: No tenderness, no CVA tenderness. [] Extremities: No tenderness, no cyanosis, no clubbing, ROM intact, no edema. [] Neurologic: Alert and oriented X 3, normal motor function, normal sensory function, no focal deficits noted. [] Psychologic: Affect normal, judgement normal, mood normal. [] EKG EKG [] Radiology/Procedures Radiology/Procedures [] Course & Med Decision Making Course & Med Decision Making Pertinent Labs and Imaging studies reviewed. (See chart for details) [] Final Impression Final Impression [] Problems: (1) Pain, dental Dragon Disclaimer Dragon Disclaimer This electronic medical record was generated, in whole or in part, using a voice recognition dictation system. RONDA TAPIA MD May 28, 2018 19:30
== END 2018-05-28 19:45 | disposition home or self-care (01) ==
LOC: ER 19:10
DX: G89.29 Other chronic pain (principal); K08.89 Other specified disorders of teeth and supporting structures; Z88.0 Allergy status to penicillin; Z88.1 Allergy status to other antibiotic agents
CPT/HCPCS: 99283

== ENCOUNTER 2018-07-03 08:22 | Emergency (ER) | payer MEDICARE ==
[~2018-07-03] VITALS: Ht 175.3 cm; Wt 54.4 kg
[~2018-07-03 08:22] MED LIST changes: +ACET-704 PO; -ALBU18HF IH; +ALBU2.5V8 IH
[2018-07-03] MEDS ORDERED: IV NORMAL SALINE 1,000ML 1,000 ML IV SCH (08:44)
[2018-07-03 08:59] LABS: BASO % 0 % (0-3); EOS # 0.1 x10^3/uL (0.0-0.7); EOS % 1 % (0-3); HEMOGLOBIN 13.7 g/dL (13.0-17.5); LYMPH % 11 % (24-48); MEAN CORPUSCULAR HEMOGLOBIN 31 pg (25-35); MEAN CORPUSCULAR HGB CONC 34 g/dL (31-37); MEAN CORPUSCULAR VOLUME 91 fL (79-100); MONO # 0.6 x10^3/uL (0.0-1.1); MONO % 6 % (0-9); NEUT # 7.3 x10^3uL (1.8-7.7); NEUT % 81 % (31-73); PLATELET COUNT 281 x10^3/uL (140-400); RED BLOOD COUNT 4.41 x10^6/uL (4.30-5.70); RED CELL DISTRIBUTION WIDTH 13.6 % (11.5-14.5)
--- NOTE | 2018-07-03 09:07 | PHYS DOC ---
Past History Past Medical History: Anxiety, Migraines Past Surgical History: No Surgical History Smoking: Cigarettes Alcohol Use: Occasionally Drug Use: None Adult General Chief Complaint Chief Complaint: NAUSEA/VOMITING/DIARRHEA HPI HPI Patient is a 33 year old male who presents with complaining of diarrhea for 3 days. Patient complaining of more than 10 episodes of nonbloody diarrhea a day for the last 3 days with one episode of vomiting and intermittent episodes of nausea without fever and chills, sick contact, urinary symptom. 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 Review of Systems Review of Systems Constitutional: Denies fever or chills [] Eyes: Denies change in visual acuity, redness, or eye pain [] HENT: Denies nasal congestion or sore throat [] Respiratory: Denies cough or shortness of breath [] Cardiovascular: No additional information not addressed in HPI [] GI: Denies abdominal pain, reports nausea, vomiting, diarrhea [] : Denies dysuria or hematuria [] Musculoskeletal: Denies back pain or joint pain [] Integument: Denies rash or skin lesions [] Neurologic: Denies headache, focal weakness or sensory changes [] Endocrine: Denies polyuria or polydipsia [] All other systems were reviewed and found to be within normal limits, except as documented in this note. Allergies Allergies Allergies Coded Allergies Type Severity Reaction Last Updated Verified amoxicillin Allergy Severe tongue swells up/SOA/Rash 01/21/18 Yes Penicillins Allergy Intermediate Swelling 01/30/17 Yes Physical Exam Physical Exam Constitutional: Well developed, well nourished, mild distress, non-toxic appearance. [] HENT: Normocephalic, atraumatic, bilateral external ears normal, oropharynx moist, no oral exudates, nose normal. [] Eyes: PERRLA, EOMI, conjunctiva normal, no discharge. [] Neck: Normal range of motion, no tenderness, supple, no stridor. [] Cardiovascular:Heart rate regular rhythm, no murmur [] Lungs & Thorax: Bilateral breath sounds clear to auscultation [] Abdomen: Bowel sounds normal, soft, no tenderness, no masses, no pulsatile masses. [] Skin: Warm, dry, no erythema, no rash. [] Back: No tenderness, no CVA tenderness. [] Extremities: No tenderness, no cyanosis, no clubbing, ROM intact, no edema. [] Neurologic: Alert and oriented X 3, normal motor function, normal sensory function, no focal deficits noted. [] Psychologic: Affect normal, judgement normal, mood normal. [] EKG EKG [] Radiology/Procedures Radiology/Procedures [] Course & Med Decision Making Course & Med Decision Making Pertinent Labs reviewed. (See chart for details) Evaluation of patient in ER showed 33-year-old male patient with complaining of frequent episodes of diarrhea for the last 3 days. Patient had unremarkable physical exam and labs. Patient stated with IV fluid and Lomotil and his condition improved. Patient tolerated oral intake. Plan to discharge patient home to diagnose of viral gastroenteritis. Dragon Disclaimer Dragon Disclaimer This electronic medical record was generated, in whole or in part, using a voice recognition dictation system. Departure Departure: Impression: Primary Impression: Viral gastroenteritis Additional Impressions: Tobacco abuse Tobacco abuse counseling Disposition: HOME, SELF-CARE (at 1044) Condition: IMPROVED Referrals: BECKA CARWFORD (PCP) Patient Instructions: Smoking Cessation, Tips For Success, Viral Gastroenteritis Additional Instructions: Drink plenty of liquids Follow-up with your primary care physician in 3-5 days Return to ER if not getting better Do not eat solid food today Problem Qualifiers LINDSAY MONSALVE MD Jul 03, 2018 09:06
[2018-07-03] MEDS ORDERED: DIPHENOXYLATE/ATROPINE TABLET. PO ONE (09:10)
[2018-07-03 09:14] LABS: ALBUMIN 4.1 g/dL (3.4-5.0); ALBUMIN/GLOBULIN RATIO 1.5 (1.0-1.7); CALCIUM 8.3 mg/dL (8.5-10.1); CREATININE 0.9 mg/dL (0.7-1.3); POTASSIUM 4.1 mmol/L (3.5-5.1); TOTAL BILIRUBIN 0.5 mg/dL (0.2-1.0); TOTAL PROTEIN 6.9 g/dL (6.4-8.2)
[2018-07-03 10:24] LABS: AMPHETAMINE/METHAMPHETAMINE NEG (NEG); BARBITURATES NEG (NEG); BENZODIAZEPINES NEG (NEG); CANNABINOIDS NEG (NEG); COCAINE NEG (NEG); METHADONE NEG (NEG); OPIATES NEG (NEG); PHENCYCLIDINE NEG (NEG)
[2018-07-03 10:27] LABS: BACTERIA,URINE 0 /HPF (0-FEW); BILIRUBIN,URINE NEG (NEG); CLARITY,URINE CLEAR; COLOR,URINE YELLOW; GLUCOSE,URINE NEG (NEG); NITRITE,URINE NEG (NEG); RBC,URINE 0 /HPF (0-2); UROBILINOGEN,URINE 0.2 mg/dL (0.2 mg/dL); WBC,URINE RARE /HPF (0-4)
[2018-07-03 10:50] VITALS: BP 120/63
== END 2018-07-03 10:50 | disposition home or self-care (01) ==
LOC: ER 08:22
DX: A08.4 Viral intestinal infection, unspecified (principal); F41.9 Anxiety disorder, unspecified; G43.909 Migraine, unspecified, not intractable, without status migrainosus; F17.210 Nicotine dependence, cigarettes, uncomplicated; Z71.6 Tobacco abuse counseling; Z88.0 Allergy status to penicillin; Z88.1 Allergy status to other antibiotic agents
CPT/HCPCS: 36415; 80053; 80307; 81001; 83690; 85025; 87493; 96360; 96361; 99283-25; J7030

== ENCOUNTER 2018-08-01 16:22 | Emergency (ER) | payer OTHER, MEDICARE ==
[~2018-08-01] VITALS: Ht 175.3 cm; Wt 54.4 kg
[~2018-08-01 16:22] MED LIST changes: +TRAZ-120 PO; -TRAZ-85 PO
--- NOTE | 2018-08-01 17:05 | RAD ---
Left ankle 3 views, left foot 3 views. HISTORY: Fall, twisted foot and ankle, pain Left foot 3 views were taken of the left foot. There is not evidence of an acute fracture or osseous abnormality. Left ankle 3 views were taken of the left ankle. There is not evidence of an acute fracture or osseous abnormality. IMPRESSION: 1. Negative left foot. 2. Negative left ankle. Electronically signed by: Monster Strong MD (08/01/2018 5:01 PM) [facility]
[2018-08-01] MEDS ORDERED: NAPR-683 PO (17:20)
--- NOTE | 2018-08-01 17:21 | PHYS DOC ---
Past History Past Medical History: Anxiety Past Surgical History: Other Smoking: Cigarettes Alcohol Use: None Drug Use: None Adult General Chief Complaint Chief Complaint: FOOT INJURY PAIN HPI HPI Patient is a 33-year-old male who presents with complaint of injury and pain to his left foot and ankle that he sustained while he was at work. Patient states that he had been walking onto a ramp when his left foot slipped off the edge of the ramp causing his ankle and foot to fold/twist. Reports to moderate pain with weightbearing. He denies any other injuries. Review of Systems Review of Systems Constitutional: Denies fever or chills [] Respiratory: Denies cough or shortness of breath [] Cardiovascular: No additional information not addressed in HPI [] Musculoskeletal: Positive right ankle and foot pain [] Allergies Allergies Allergies Coded Allergies Type Severity Reaction Last Updated Verified amoxicillin Allergy Severe tongue swells up/SOA/Rash 08/01/18 Yes Penicillins Allergy Intermediate Swelling 08/01/18 Yes Physical Exam Physical Exam Constitutional: Well developed, well nourished, no acute distress, non-toxic appearance. [] HENT: Normocephalic, atraumatic,. [] Cardiovascular:Heart rate regular rhythm, no murmur [] Lungs & Thorax: Bilateral breath sounds clear to auscultation [] Extremities: Left foot and ankle demonstrates tenderness to palpation in the area of the anterior talofibular ligament as well as in region of base of fifth metatarsal. No soft tissue swelling or deformity is noted on exam. [] Neurologic: Alert and oriented X 3, no focal deficits noted. [] Current Patient Data Vital Signs Vital Signs Date Time Temp Pulse Resp B/P (MAP) Pulse Ox O2 Delivery O2 Flow Rate FiO2 08/01/18 16:23 97.7 82 18 100 Room Air EKG EKG [] Radiology/Procedures Radiology/Procedures [] Impressions: X-rays of left foot and ankle demonstrate no acute bony abnormalities. Course & Med Decision Making Course & Med Decision Making Pertinent Labs and Imaging studies reviewed. (See chart for details) [] Dragon Disclaimer Dragon Disclaimer This electronic medical record was generated, in whole or in part, using a voice recognition dictation system. Departure Departure: Impression: Primary Impression: Sprain of foot, left Additional Impression: Left ankle sprain Disposition: 01 HOME, SELF-CARE Condition: STABLE Referrals: MALENA ROMO (PCP) Patient Instructions: Ankle Sprain, Foot Sprain Scripts Naproxen (NAPROSYN) 500 Mg Tablet 1 TAB PO BID PRN for PAIN, #20 TAB Prov: EMILY BUITRAGO Jr. DO 08/01/18 Problem Qualifiers Primary Impression: Sprain of foot, left Encounter type: initial encounter Qualified Codes: S93.602A - Unspecified sprain of left foot, initial encounter Additional Impression: Left ankle sprain Encounter type: initial encounter Involved ligament of ankle: unspecified ligament Qualified Codes: S93.402A - Sprain of unspecified ligament of left ankle, initial encounter EMILY BUITRAGO Jr. DO Aug 01, 2018 17:21
[2018-08-01 17:33] VITALS: BP 127/92
== END 2018-08-01 17:30 | disposition home or self-care (01) ==
LOC: ER 16:22
DX: S93.402A Sprain of unspecified ligament of left ankle, initial encounter (principal); S93.602A Unspecified sprain of left foot, initial encounter; F17.210 Nicotine dependence, cigarettes, uncomplicated; F41.9 Anxiety disorder, unspecified; Z88.0 Allergy status to penicillin; Z88.1 Allergy status to other antibiotic agents; X50.1XXA Overexertion from prolonged static or awkward postures, initial encounter; Y93.01 Activity, walking, marching and hiking; Y92.89 Other specified places as the place of occurrence of the external cause; Y99.0 Civilian activity done for income or pay
CPT/HCPCS: 73610; 73630; 99283

== ENCOUNTER 2018-09-02 05:43 | Emergency (ER) | payer MEDICARE, OTHER ==
[~2018-09-02] VITALS: Ht 175.3 cm; Wt 54.4 kg
[2018-09-02 06:06] VITALS: BP 132/72
[2018-09-02] MEDS ORDERED: Percogesic PO (06:11)
[2018-09-02] MEDS ORDERED: CLIN150C14 PO (06:11)
--- NOTE | 2018-09-02 06:13 | PHYS DOC ---
Past History Past Medical History: Anxiety Past Surgical History: Other Smoking: Cigarettes Alcohol Use: None Drug Use: None Adult General Chief Complaint Chief Complaint: DENTAL PROBLEM HPI HPI Patient is a 33 year old male who presents with complaining of dental pain since yesterday. Patient complaining of pain in left upper jaw and tooth as a constant and sharp pain radiating to his neck ear. Patient denies fever and chills, injury, nausea and vomiting. Patient states he finished his last ibuprofen and antibiotic given for his dental pain without improvement of his pain. Patient states he tried to get to a dentist for the last 3 weeks without success. Patient has had frequent emergency room visits to different complaint. Review of Systems Review of Systems Constitutional: Denies fever or chills [] Eyes: Denies change in visual acuity, redness, or eye pain [] HENT: Denies nasal congestion or sore throat , reports dental pain[] Respiratory: Denies cough or shortness of breath [] Cardiovascular: No additional information not addressed in HPI [] GI: Denies abdominal pain, nausea, vomiting, bloody stools or diarrhea [] : Denies dysuria or hematuria [] Musculoskeletal: Denies back pain or joint pain [] Integument: Denies rash or skin lesions [] Neurologic: Denies headache, focal weakness or sensory changes [] Endocrine: Denies polyuria or polydipsia [] All other systems were reviewed and found to be within normal limits, except as documented in this note. Allergies Allergies Allergies Coded Allergies Type Severity Reaction Last Updated Verified amoxicillin Allergy Severe tongue swells up/SOA/Rash 08/01/18 Yes Penicillins Allergy Intermediate Swelling 08/01/18 Yes Physical Exam Physical Exam Constitutional: Well developed, well nourished, mild distress, non-toxic appearance. [] HENT: Normocephalic, atraumatic, bilateral external ears normal, tooth #14 with mild tenderness without sign of inflammation or infection of cough, oropharynx moist, no oral exudates, nose normal. [] Eyes: PERRLA, EOMI, conjunctiva normal, no discharge. [] Neck: Normal range of motion, no tenderness, supple, no stridor. [] Cardiovascular:Heart rate regular rhythm, no murmur [] Lungs & Thorax: Bilateral breath sounds clear to auscultation [] Neurologic: Alert and oriented X 3 EKG EKG [] Radiology/Procedures Radiology/Procedures [] Course & Med Decision Making Course & Med Decision Making Evaluation of patient in ER showed 33-year-old male patient with complaining of dental pain since yesterday morning. Patient did not have sign of abscess or infection of tooth #14. Patient instructed to quit smoking and follow up with her dentist for chronic dental pain. Patient has had frequent emergency room visits for different complaint. Dragon Disclaimer Dragon Disclaimer This electronic medical record was generated, in whole or in part, using a voice recognition dictation system. Departure Departure: Impression: Primary Impression: Pain, dental Additional Impressions: Tobacco abuse Tobacco abuse counseling Disposition: HOME, SELF-CARE (At 0609) Condition: STABLE Referrals: MALENA ROMO (PCP) Patient Instructions: Smoking Cessation, Tips For Success, Toothache-Brief Additional Instructions: Quit smoking Follow-up with your dentist in 3-5 days Return to ER if not getting better Scripts [Percogesic] No Conflict Check 1 TAB PO QID for toothache, #14 Prov: LINDSAY MONSALVE MD 09/02/18 Clindamycin Hcl (CLINDAMYCIN HCL) 150 Mg Capsule 1 CAP PO QID for infection, #28 CAP Prov: LINDSAY MONSALVE MD 09/02/18 Problem Qualifiers LINDSAY MONSALVE MD Sep 02, 2018 06:13
== END 2018-09-02 06:25 | disposition home or self-care (01) ==
LOC: ER 05:43
DX: K08.89 Other specified disorders of teeth and supporting structures (principal); F41.9 Anxiety disorder, unspecified; F17.210 Nicotine dependence, cigarettes, uncomplicated; G89.29 Other chronic pain; Z71.6 Tobacco abuse counseling; Z88.1 Allergy status to other antibiotic agents; Z88.0 Allergy status to penicillin
CPT/HCPCS: 99283

== ENCOUNTER 2018-11-06 11:26 | Emergency (ER) | payer MEDICARE ==
[~2018-11-06] VITALS: Ht 175.3 cm; Wt 54.4 kg
[~2018-11-06 11:26] MED LIST changes: +Percogesic PO
[2018-11-06] MEDS ORDERED: IV NORMAL SALINE 1,000ML 1,000 ML IV SCH (11:30)
--- NOTE | 2018-11-06 11:35 | PHYS DOC ---
Past History Past Medical History: Anxiety Past Surgical History: Other Smoking: Cigarettes Alcohol Use: None Drug Use: None Adult General Chief Complaint Chief Complaint: CHEST PAIN HPI HPI Patient is a 33-year-old male who presents via EMS with report of chest discomfort that started about 10:00. Patient states the pain started when he was on his way back to work and driving. He states that pain was like tightness in his chest along with sharp stabbing pain in his mid upper chest. He states the pain is worsened with deep breathing, palpation and movements. He denies any nausea, vomiting or diaphoresis. He rated pain initially at an 8 out of 10 but states that now it's about a 6 out of 10 after having been given some aspirin and nitroglycerin.[] Review of Systems Review of Systems Constitutional: Denies fever or chills [] Respiratory: Denies cough or shortness of breath [] Cardiovascular: No additional information not addressed in HPI [] GI: Denies abdominal pain, nausea, vomiting or diarrhea [] Musculoskeletal: Denies back pain or joint pain [] Integument: Denies rash or skin lesions [] All other systems were reviewed and found to be within normal limits, except as documented in this note. Allergies Allergies Allergies Coded Allergies Type Severity Reaction Last Updated Verified amoxicillin Allergy Severe tongue swells up/SOA/Rash 08/01/18 Yes Penicillins Allergy Intermediate Swelling 08/01/18 Yes Physical Exam Physical Exam Constitutional: Well developed, well nourished, no acute distress, non-toxic appearance. [] HENT: Normocephalic, atraumatic, bilateral external ears normal, oropharynx moist, no oral exudates, nose normal. [] Eyes: PERRLA, EOMI, conjunctiva normal, no discharge. [] Neck: Normal range of motion, no tenderness, supple, no stridor. [] Cardiovascular: Regular rate and rhythm. There is reproducible tenderness along the right mid and upper sternal margin[] Lungs & Thorax: Bilateral breath sounds clear to auscultation [] Abdomen: Bowel sounds normal, soft, no tenderness. [] Skin: Warm, dry, no erythema, no rash. [] Extremities: No tenderness, no cyanosis, no clubbing, ROM intact. [] Neurologic: Alert and oriented X 3, no focal deficits noted. [] EKG EKG EKG demonstrates normal sinus rhythm with rate of 95.[] Radiology/Procedures Radiology/Procedures [] Impressions: PROCEDURE: PORTABLE CHEST 1V EXAM: CHEST 1 VIEW History: Chest pain COMPARISON: 11/20/2016 TECHNIQUE: Single portable radiograph of the chest FINDINGS: The cardiac silhouette is unremarkable. The lungs are clear bilaterally. The costophrenic sulci are clear and well demarcated. The deck IMPRESSION: No radiographic evidence of an acute cardiopulmonary process. Electronically signed by: Baljeet Caicedo MD (11/06/2018 12:01 PM) [place] [id number] Course & Med Decision Making Course & Med Decision Making Pertinent Labs and Imaging studies reviewed. (See chart for details) [] Dragon Disclaimer Dragon Disclaimer This electronic medical record was generated, in whole or in part, using a voice recognition dictation system. Departure Departure: Impression: Primary Impression: Chest wall pain Disposition: 01 HOME, SELF-CARE Condition: STABLE Referrals: MALENA ROMO (PCP) Patient Instructions: Chest Wall Pain Scripts Diclofenac Sodium (DICLOFENAC SODIUM) 50 Mg Tablet. 1 TAB PO BID PRN for PAIN, #20 TAB Prov: EMILY BUITRAGO Jr. DO 11/06/18 EMILY BUITRAGO Jr. DO November 06, 2018 11:35
[2018-11-06] MEDS ORDERED: KETOROLAC 30 MG/ML VIAL. IV ONE (11:45)
[2018-11-06 11:59] LABS: BASO % 0 % (0-3); EOS % 1 % (0-3); HEMATOCRIT 37.6 % (39.0-53.0); HEMOGLOBIN 12.7 g/dL (13.0-17.5); LYMPH # 1.2 x10^3/uL (1.0-4.8); LYMPH % 16 % (24-48); MEAN CORPUSCULAR HEMOGLOBIN 29 pg (25-35); MEAN CORPUSCULAR HGB CONC 34 g/dL (31-37); MEAN CORPUSCULAR VOLUME 86 fL (79-100); MONO # 0.6 x10^3/uL (0.0-1.1); MONO % 9 % (0-9); NEUT # 5.3 x10^3uL (1.8-7.7); NEUT % 74 % (31-73); PLATELET COUNT 332 x10^3/uL (140-400); RED BLOOD COUNT 4.37 x10^6/uL (4.30-5.70); RED CELL DISTRIBUTION WIDTH 13.1 % (11.5-14.5); WHITE BLOOD COUNT 7.2 x10^3/uL (4.0-11.0)
--- NOTE | 2018-11-06 12:04 | RAD ---
EXAM: CHEST 1 VIEW History: Chest pain COMPARISON: 11/20/2016 TECHNIQUE: Single portable radiograph of the chest FINDINGS: The cardiac silhouette is unremarkable. The lungs are clear bilaterally. The costophrenic sulci are clear and well demarcated. The deck IMPRESSION: No radiographic evidence of an acute cardiopulmonary process. Electronically signed by: Baljeet Caicedo MD (11/06/2018 12:01 PM) [facility]
[2018-11-06 12:08] LABS: ALBUMIN 3.8 g/dL (3.4-5.0); ALBUMIN/GLOBULIN RATIO 1.3 (1.0-1.7); CALCIUM 8.9 mg/dL (8.5-10.1); CREATININE 0.9 mg/dL (0.7-1.3); MAGNESIUM 2.2 mg/dL (1.8-2.4); POTASSIUM 3.8 mmol/L (3.5-5.1); TOTAL BILIRUBIN 0.3 mg/dL (0.2-1.0); TOTAL PROTEIN 6.7 g/dL (6.4-8.2)
[2018-11-06 12:26] LABS: BACTERIA,URINE 0 /HPF (0-FEW); BILIRUBIN,URINE NEG (NEG); CLARITY,URINE CLEAR; COLOR,URINE AMBER; GLUCOSE,URINE NEG (NEG); NITRITE,URINE NEG (NEG); RBC,URINE 0 /HPF (0-2); SQUAMOUS EPITHELIAL CELL,UR OCC /LPF; UROBILINOGEN,URINE 0.2 mg/dL (0.2 mg/dL); WBC,URINE 0 /HPF (0-4)
[2018-11-06 12:29] LABS: BARBITURATES NEG (NEG); BENZODIAZEPINES NEG (NEG); CANNABINOIDS NEG (NEG); COCAINE NEG (NEG); METHADONE NEG (NEG); OPIATES NEG (NEG); PHENCYCLIDINE NEG (NEG)
[2018-11-06 12:30] LABS: AMPHETAMINE/METHAMPHETAMINE NEG (NEG)
[2018-11-06] MEDS ORDERED: DICL50TA4 PO (12:35)
[2018-11-06 12:44] VITALS: BP 118/81
--- NOTE | 2018-11-06 16:48 | EKG ---
[address] [address] Test Date: 2018-11-06 Test Time: 11:32:56 Pat Name: SALEEM ANTHONY Department: Room: Gender: M [employer]: : 1985 Requested By: EMILY BUITRAGO Order Number: [id number] Reading MD: Man Mahmood Measurements Intervals [place] Rate: 95 P: 66 DC: 130 QRS: 77 QRSD: 86 T: 52 QT: 312 QTc: 395 Interpretive Statements SINUS RHYTHM Electronically Signed On 11-29-2018 12:04:56 CDT by Man Mahmood
== END 2018-11-06 12:45 | disposition home or self-care (01) ==
LOC: ER 11:26
DX: R07.89 Other chest pain (principal); F41.9 Anxiety disorder, unspecified; F17.210 Nicotine dependence, cigarettes, uncomplicated; Z88.0 Allergy status to penicillin; Z88.1 Allergy status to other antibiotic agents
CPT/HCPCS: 36415; 71045; 80053; 80307; 81001; 83690; 83735; 84484; 85025; 85379; 93005; 96374; 99285; J1885; J7030

== ENCOUNTER → 2018-11-07 | Outpatient (CLI) | payer MEDICARE ==
[2018-11-06 12:44] VITALS: BP 118/81
[~2018-11-07] MED LIST changes: +DICL50TA4 PO
--- NOTE | 2018-11-07 14:32 | RAD ---
3 views thoracic spine dated 11/07/2018. No comparison available. CLINICAL INDICATION: Back pain. No known injury. FINDINGS: AP, lateral and swimmer's views obtained. Sagittal alignment is anatomic. The body heights are maintained. Mild endplate hypertrophic changes throughout. There is mild dextroconvex scoliotic curvature. IMPRESSION: 1. No acute radiographic abnormality. 2. Mild multilevel spondylosis with mild dextroconvex scoliotic curvature. Electronically signed by: Storm Cantor MD (11/07/2018 2:29 PM) [facility]
== END | disposition home or self-care (01) ==
LOC: PMG 12:03
PROVIDERS: ATTEND Registered Nurse
DX: M47.814 Spondylosis without myelopathy or radiculopathy, thoracic region (principal); M41.84 Other forms of scoliosis, thoracic region; M89.38 Hypertrophy of bone, other site
CPT/HCPCS: 72072

== ENCOUNTER 2018-12-31 15:38 | Emergency (ER) | payer OTHER, MEDICARE ==
[~2018-12-31] VITALS: Ht 175.3 cm; Wt 56.7 kg
--- NOTE | 2018-12-31 16:33 | RAD ---
Three-view left thumb radiographs 12/31/2018 CLINICAL HISTORY: Fall with injury to the left thumb. PA, lateral and oblique digital radiographs of the left thumb were obtained. No fracture or dislocation of the left thumb is seen. No radiopaque foreign body is noted. IMPRESSION: No fracture or dislocation of the left thumb is seen. Electronically signed by: Hayden Hughes MD (12/31/2018 4:30 PM) [facility]
[2018-12-31] MEDS ORDERED: NAPR-683 PO (16:48)
--- NOTE | 2018-12-31 16:49 | PHYS DOC ---
Past History Past Medical History: Anxiety Past Surgical History: No Surgical History Smoking: Cigarettes Alcohol Use: None Drug Use: None Adult General Chief Complaint Chief Complaint: THUMB HPI HPI Patient is a 33-year-old male who presents with complaint of injury to his left thumb that he injured while at work. Patient states that he was picking up #10 cans of food and one of them crushed his thumb. He rates pain as moderate and s tates the pain is worsened with movement of that finger. He denies any other injuries.[] Review of Systems Review of Systems Constitutional: Denies fever or chills [] Respiratory: Denies cough or shortness of breath [] Cardiovascular: No additional information not addressed in HPI [] Musculoskeletal: Complains of left thumb pain [] Allergies Allergies Allergies Coded Allergies Type Severity Reaction Last Updated Verified amoxicillin Allergy Severe tongue swells up/SOA/Rash 11/06/18 Yes Penicillins Allergy Intermediate Swelling 11/06/18 Yes Physical Exam Physical Exam Constitutional: Well developed, well nourished, no acute distress, non-toxic karie earance. [] Cardiovascular:Heart rate regular rhythm, no murmur [] Lungs & Thorax: Bilateral breath sounds clear to auscultation [] Extremities: There is tenderness to palpation around the interphalangeal joint of the left thumb with very mild soft tissue swelling. [] EKG EKG [] Radiology/Procedures Radiology/Procedures [] Course & Med Decision Making Course & Med Decision Making Pertinent Labs and Imaging studies reviewed. (See chart for details) [] Dragon Disclaimer Dragon Disclaimer This electronic medical record was generated, in whole or in part, using a voice recognition dictation system. Departure Departure: Impression: Primary Impression: Contusion of left thumb Disposition: 01 HOME, SELF-CARE Condition: STABLE Referrals: MALENA ROMO (PCP) Patient Instructions: Contusion Scripts Naproxen (NAPROSYN) 500 Mg Tablet 1 TAB PO BID PRN for PAIN, #20 TAB Prov: EMILY BUITRAGO Jr. DO 12/31/18 Problem Qualifiers Primary Impression: Contusion of left thumb Encounter type: initial encounter Damage to nail status: without damage Qualified Codes: S60.012A - Contusion of left thumb without damage to nail, initial encounter EMILY BUITRAGO Jr. DO Dec 31, 2018 16:49
[2018-12-31 17:30] VITALS: BP 105/68
== END 2018-12-31 17:30 | disposition home or self-care (01) ==
LOC: ER 15:38
DX: S60.012A Contusion of left thumb without damage to nail, initial encounter (principal); F17.210 Nicotine dependence, cigarettes, uncomplicated; Z88.0 Allergy status to penicillin; Z88.1 Allergy status to other antibiotic agents; W23.0XXA Caught, crushed, jammed, or pinched between moving objects, initial encounter; Y93.89 Activity, other specified; Y92.89 Other specified places as the place of occurrence of the external cause; Y99.8 Other external cause status
CPT/HCPCS: 29125; 73140; 99284

== ENCOUNTER 2019-04-15 17:08 | Emergency (ER) | payer MEDICARE, OTHER ==
[~2019-04-15] VITALS: Ht 175.3 cm; Wt 56.7 kg
[2019-04-15] MEDS ORDERED: IV NORMAL SALINE 1,000ML 1,000 ML IV SCH (17:31)
--- NOTE | 2019-04-15 17:41 | PHYS DOC ---
Past History Past Medical History: Anxiety (EMILY BUITRAGO Jr. DO) Past Surgical History: No Surgical History (EMILY BUITRAGO Jr. DO) Smoking: Cigarettes Alcohol Use: None Drug Use: None (EMILY BUITRAGO Jr. DO) Adult General Chief Complaint Chief Complaint: FEVER HPI HPI Patient is a 33-year-old male who presents with complaint of fever and chills along with body aches that started yesterday. Patient states that today his temperature was as high as 103. He states that he took some ibuprofen while at home and fever has come down since that time. He states that yesterday his temperature was like a 99.9. He does admit to a mild cough and states that it is productive of a small amount of clear sputum. He also admits to headache. He rates the body aches as moderate. He denies any chest pain or shortness of breath.[] (EMILY BUITRAGO Jr. DO) Review of Systems Review of Systems Constitutional: Positive fever and chills [] Eyes: Denies change in visual acuity, redness, or eye pain [] HENT: Positive congestion and sore throat [] Respiratory: Admits to cough without shortness of breath [] Cardiovascular: No additional information not addressed in HPI [] GI: Denies abdominal pain, nausea, vomiting or diarrhea [] Neurologic: Complains of headache without focal weakness or sensory changes [] A full 10 point review of systems has been reviewed and is otherwise negative. (EMILY BUITRAGO Jr. DO) Allergies Allergies Allergies Coded Allergies Type Severity Reaction Last Updated Verified amoxicillin Allergy Severe tongue swells up/SOA/Rash 11/06/18 Yes Penicillins Allergy Intermediate Swelling 11/06/18 Yes (EMILY BUITRAGO Jr. DO) Physical Exam Physical Exam Constitutional: Well developed, well nourished, no acute distress, non-toxic appearance. [] HENT: Normocephalic, atraumatic, bilateral external ears normal, oropharynx moist, no oral exudates, nose normal. [] Eyes: PERRLA, EOMI, conjunctiva normal, no discharge. [] Neck: Normal range of motion, no tenderness, supple, no stridor. [] Cardiovascular: Mildly tachycardic rate with regular rhythm[] Lungs & Thorax: Bilateral breath sounds clear to auscultation [] Abdomen: Bowel sounds normal, soft, no tenderness. [] Skin: Warm, dry, no erythema, no rash. [] Extremities: No tenderness, no cyanosis, no clubbing, ROM intact, no edema. [] Neurologic: Alert and oriented X 3, no focal deficits noted. [] (EMILY BUITRAGO Jr., DO) EKG EKG [] (EMILY BUITRAGO Jr., DO) Radiology/Procedures Radiology/Procedures [] (EMILY BUITRAGO Jr., DO) Impressions: Exam: Chest one view INDICATION: Fever, cough, shortness of breath TECHNIQUE: Frontal view of the chest Comparisons: 11/06/2018 FINDINGS: The cardiomediastinal silhouette and pulmonary vessels are within normal limits. Hazy opacity noted at the right middle lobe. Remaining lungs are clear. No pleural effusion. IMPRESSION: Hazy opacity in the right middle lobe, favored to represent pneumonia. Follow-up imaging posttreatment is recommended to ensure resolution. Electronically signed by: Corine Peguero MD (04/15/2019 7:29 PM) [facility] DICTATED AND SIGNED BY: CORINE PEGUERO MD DATE: 04/15/191928 CC: EMILY BUITRAGO Jr., DO; SILVANO ANDERSON DO; MALENA ROMO ~ (SILVANO ANDERSON DO) Course & Med Decision Making Course & Med Decision Making Pertinent Labs and Imaging studies reviewed. (See chart for details) [] (EMILY BUITRAGO Jr., DO) Course & Med Decision Making The patient's x-rays suggestive of right middle lobe pneumonia. I will treat him with azithromycin. We will give his 100 mg dose in the ED. I will discharge him with a prescription for the rest of the treatment. The patient does not have a fever in the ED. His labs are unremarkable. I believe he should do well at home. If the patient's condition worsens, he is welcome to return the emergency room. He is stable for discharge at this time. (SILVANO ANDERSON DO) Dragon Disclaimer Dragon Disclaimer This electronic medical record was generated, in whole or in part, using a voice recognition dictation system. (EMILY BUITRAGO Jr., DO) Departure Departure: Impression: Primary Impression: Pneumonia Disposition: HOME, SELF-CARE Condition: STABLE Referrals: MALENA ROMO (PCP) Patient Instructions: Pneumonia, Adult, [id number] Scripts Azithromycin (AZITHROMYCIN TABLET) 250 Mg Tablet 250 MG PO DAILY for ANTI-BIOTIC for 4 Days, #4 TAB 0 Refills start 04/16/19 Prov: SILVANO ANDERSON DO 04/15/19 Problem Qualifiers Primary Impression: Pneumonia Pneumonia type: due to unspecified organism Laterality: right Lung location: middle lobe of lung Qualified Codes: J18.1 - Lobar pneumonia, unspecified organism EMILY BUITRAGO Jr. DO Apr 15, 2019 17:41 SILVANO ANDERSON DO Apr 15, 2019 19:38
[2019-04-15 18:08] LABS: BASO % 0 % (0-3); EOS % 0 % (0-3); HEMATOCRIT 42.8 % (39.0-53.0); HEMOGLOBIN 14.4 g/dL (13.0-17.5); LYMPH # 0.8 x10^3/uL (1.0-4.8); LYMPH % 9 % (24-48); MEAN CORPUSCULAR HEMOGLOBIN 30 pg (25-35); MEAN CORPUSCULAR HGB CONC 34 g/dL (31-37); MEAN CORPUSCULAR VOLUME 88 fL (79-100); MONO # 0.7 x10^3/uL (0.0-1.1); MONO % 9 % (0-9); NEUT % 82 % (31-73); PLATELET COUNT 207 x10^3/uL (140-400); RED BLOOD COUNT 4.86 x10^6/uL (4.30-5.70); RED CELL DISTRIBUTION WIDTH 15.9 % (11.5-14.5); WHITE BLOOD COUNT 8.6 x10^3/uL (4.0-11.0)
[2019-04-15 18:15] LABS: ALBUMIN 3.8 g/dL (3.4-5.0); ALBUMIN/GLOBULIN RATIO 1.2 (1.0-1.7); CALCIUM 8.8 mg/dL (8.5-10.1); CREATININE 1.1 mg/dL (0.7-1.3); GFR 76.2; POTASSIUM 3.7 mmol/L (3.5-5.1); TOTAL BILIRUBIN 0.4 mg/dL (0.2-1.0)
[2019-04-15 19:08] LABS: INFLUENZA A PATIENT NEGATIVE (NEGATIVE); INFLUENZA B PATIENT NEGATIVE (NEGATIVE)
[2019-04-15 19:14] LABS: BILIRUBIN,URINE NEG (NEG); CLARITY,URINE CLEAR; COLOR,URINE YELLOW; GLUCOSE,URINE NEG (NEG)
[2019-04-15 19:15] LABS: BACTERIA,URINE 0 /HPF (0-FEW); HYALINE CASTS, URINE OCC /HPF; NITRITE,URINE NEG (NEG); RBC,URINE 0 /HPF (0-2); SQUAMOUS EPITHELIAL CELL,UR OCC /LPF; UROBILINOGEN,URINE 1 mg/dL (0.2 mg/dL)
--- NOTE | 2019-04-15 19:32 | RAD ---
Exam: Chest one view INDICATION: Fever, cough, shortness of breath TECHNIQUE: Frontal view of the chest Comparisons: 11/06/2018 FINDINGS: The cardiomediastinal silhouette and pulmonary vessels are within normal limits. Hazy opacity noted at the right middle lobe. Remaining lungs are clear. No pleural effusion. IMPRESSION: Hazy opacity in the right middle lobe, favored to represent pneumonia. Follow-up imaging posttreatment is recommended to ensure resolution. Electronically signed by: Corine Dotson MD (04/15/2019 7:29 PM) [facility]
[2019-04-15] MEDS ORDERED: AZIT250T6 PO (19:37)
[2019-04-15] MEDS ORDERED: AZITHROMYCIN 250 MG TABLET. PO ONE (19:45)
[2019-04-15 19:50] VITALS: BP 107/63
== END 2019-04-15 19:56 | disposition home or self-care (01) ==
LOC: ER 17:08
DX: J18.1 Lobar pneumonia, unspecified organism (principal); F41.9 Anxiety disorder, unspecified; F17.210 Nicotine dependence, cigarettes, uncomplicated; Z88.0 Allergy status to penicillin; Z88.1 Allergy status to other antibiotic agents
CPT/HCPCS: 36415; 71045; 80053; 81001; 85025; 87040; 87070; 87804; 87880; 99285; J0456; J7030

== ENCOUNTER → 2019-11-15 | Outpatient (CLI) | payer MEDICARE ==
[~2019-11-15] MED LIST changes: +AZIT250T6 PO
--- NOTE | 2019-11-15 09:42 | RAD ---
Right foot x-rays 3 views HISTORY: Right foot pain, fall, trauma. FINDINGS: No fracture. No dislocation. No arthritic change. The soft tissues are unremarkable. IMPRESSION: Normal exam. Electronically signed by: Mihai Elizabeth MD (11/15/2019 9:39 AM) [facility] [place]
== END ==
LOC: PMG 09:05
PROVIDERS: ATTEND Physician Assistant Medical
DX: M79.671 Pain in right foot (principal)
CPT/HCPCS: 73630

== ENCOUNTER 2019-12-14 08:10 | Emergency (ER) | payer MEDICARE ==
[~2019-12-14] VITALS: Ht 175.3 cm; Wt 55.6 kg
[2019-12-14 08:42] VITALS: BP 98/68
[2019-12-14 08:50] LABS: BASO % 1 % (0-3); EOS # 0.1 x10^3/uL (0.0-0.7); EOS % 3 % (0-3); HEMATOCRIT 45.1 % (39.0-53.0); HEMOGLOBIN 15.4 g/dL (13.0-17.5); LYMPH # 1.6 x10^3/uL (1.0-4.8); LYMPH % 32 % (24-48); MEAN CORPUSCULAR HEMOGLOBIN 31 pg (25-35); MEAN CORPUSCULAR HGB CONC 34 g/dL (31-37); MEAN CORPUSCULAR VOLUME 91 fL (79-100); MONO # 0.7 x10^3/uL (0.0-1.1); MONO % 13 % (0-9); NEUT # 2.6 x10^3uL (1.8-7.7); NEUT % 52 % (31-73); PLATELET COUNT 242 x10^3/uL (140-400); RED BLOOD COUNT 4.94 x10^6/uL (4.30-5.70); RED CELL DISTRIBUTION WIDTH 13.4 % (11.5-14.5)
[2019-12-14 08:59] LABS: CREATININE 1.1 mg/dL (0.7-1.3); GFR 75.7; POTASSIUM 3.7 mmol/L (3.5-5.1)
[2019-12-14 09:03] LABS: BILIRUBIN,URINE NEG (NEG); CLARITY,URINE HAZY; COLOR,URINE AMBER; GLUCOSE,URINE NEG (NEG)
[2019-12-14 09:04] LABS: BACTERIA,URINE FEW /HPF (0-FEW); NITRITE,URINE NEG (NEG); RBC,URINE OCC /HPF (0-2); SQUAMOUS EPITHELIAL CELL,UR OCC /LPF; UROBILINOGEN,URINE 0.2 mg/dL (0.2 mg/dL); WBC,URINE OCC /HPF (0-4)
[2019-12-14 09:05] LABS: ALBUMIN 4.4 g/dL (3.4-5.0); ALBUMIN/GLOBULIN RATIO 1.5 (1.0-1.7); TOTAL BILIRUBIN 0.7 mg/dL (0.2-1.0); TOTAL PROTEIN 7.4 g/dL (6.4-8.2)
--- NOTE | 2019-12-14 09:07 | PHYS DOC ---
Past History Past Medical History: Anxiety Past Surgical History: No Surgical History Smoking: Cigarettes Alcohol Use: None Drug Use: None General Adult EDM: Chief Complaint: OTHER COMPLAINTS HPI: HPI: 34-year-old male presents with concern of exposure to COVID-19. 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 1 of the people he was with just tested positive yesterday for COVID-19. The patient has no symptoms. He denies cough or shortness of breath. He is mostly concerned because he lives with his father who has a transplant. Denies fever or chills. Review of Systems: Review of Systems: Constitutional: Denies fever or chills Eyes: Denies change in visual acuity HENT: Denies nasal congestion or sore throat Respiratory: Denies cough or shortness of breath Cardiovascular: Denies chest pain or edema GI: Denies abdominal pain, nausea, vomiting, bloody stools or diarrhea : Denies dysuria Musculoskeletal: Denies back pain or joint pain Integument: Denies rash Neurologic: Denies headache, focal weakness or sensory changes Endocrine: Denies polyuria or polydipsia Lymphatic: Denies swollen glands Psychiatric: Denies depression or anxiety Heart Score: Risk Factors: Risk Factors: DM, Current or recent (<one month) smoker, HTN, HLP, family history of CAD, obesity. Risk Scores: Score 0 - 3: 2.5% MACE over next 6 weeks - Discharge Home Score 4 - 6: 20.3% MACE over next 6 weeks - Admit for Clinical Observation Score 7 - 10: 72.7% MACE over next 6 weeks - Early Invasive Strategies Allergies: Allergies: Allergies Coded Allergies Type Severity Reaction Last Updated Verified amoxicillin Allergy Severe tongue swells up/SOA/Rash 11/06/18 Yes Penicillins Allergy Intermediate Swelling 11/06/18 Yes Physical Exam: PE: Constitutional: Well developed, well nourished, no acute distress, non-toxic appearance. [] HENT: Normocephalic, atraumatic, bilateral external ears normal, oropharynx moist, no oral exudates, nose normal. [] Eyes: PERRLA, EOMI, conjunctiva normal, no discharge. [] Neck: Normal range of motion, no tenderness, supple, no stridor. [] Cardiovascular:Heart rate regular rhythm, no murmur [] Lungs & Thorax: Bilateral breath sounds clear to auscultation [] Abdomen: Bowel sounds normal, soft, no tenderness, no masses, no pulsatile masses. [] Skin: Warm, dry, no erythema, no rash. [] Back: No tenderness, no CVA tenderness. [] Extremities: No tenderness, no cyanosis, no clubbing, ROM intact, no edema. [] Neurologic: Alert and oriented X 3, normal motor function, normal sensory function, no focal deficits noted. [] Psychologic: Affect normal, judgement normal, mood normal. [] Current Patient Data: Labs: Laboratory Tests Test 12/14/19 08:25 White Blood Count 5.0 x10^3/uL (4.0-11.0) Red Blood Count 4.94 x10^6/uL (4.30-5.70) Hemoglobin 15.4 g/dL (13.0-17.5) Hematocrit 45.1 % (39.0-53.0) Mean Corpuscular Volume 91 fL (79-100) Mean Corpuscular Hemoglobin 31 pg (25-35) Mean Corpuscular Hemoglobin Concent 34 g/dL (31-37) Red Cell Distribution Width 13.4 % (11.5-14.5) Platelet Count 242 x10^3/uL (140-400) Neutrophils (%) (Auto) 52 % (31-73) Lymphocytes (%) (Auto) 32 % (24-48) Monocytes (%) (Auto) 13 % (0-9) H Eosinophils (%) (Auto) 3 % (0-3) Basophils (%) (Auto) 1 % (0-3) Neutrophils # (Auto) 2.6 x10^3uL (1.8-7.7) Lymphocytes # (Auto) 1.6 x10^3/uL (1.0-4.8) Monocytes # (Auto) 0.7 x10^3/uL (0.0-1.1) Eosinophils # (Auto) 0.1 x10^3/uL (0.0-0.7) Basophils # (Auto) 0.0 x10^3/uL (0.0-0.2) Vital Signs: Vital Signs Date Time Temp Pulse Resp B/P (MAP) Pulse Ox O2 Delivery O2 Flow Rate FiO2 12/14/19 08:42 97.8 84 18 98/68 (78) 95 EKG: EKG: [] Radiology/Procedures: Radiology/Procedures: [] Course & Med Decision Making: Course & Med Decision Making Pertinent Labs and Imaging studies reviewed. (See chart for details) The patient's labs are unremarkable. His urinalysis is unremarkable. He meets absolutely no criteria for admission. I have advised that he go to the health department tomorrow if he wants tested. He should quarantine until he gets a test result. He is stable for discharge at this time. [] Dragon Disclaimer: Dragon Disclaimer: This electronic medical record was generated, in whole or in part, using a voice recognition dictation system. Departure Departure: Impression: Primary Impression: Exposure to COVID-19 virus Disposition: HOME/RESIDENCE PRIOR TO ADM Condition: STABLE Referrals: MALENA ROMO (PCP) Additional Instructions: Please go to the health department tomorrow to get an elective test for COVID- 19. You should self quarantine until you get a result. If your condition worsens, you should return to the emergency room. Justification of Admission: Justification of Admission: Justification of Admission Dx: N/A SILVANO ANDERSON DO Dec 14, 2019 09:07
== END 2019-12-14 09:30 | disposition home or self-care (01) ==
LOC: ER 08:10
DX: Z03.818 Encounter for observation for suspected exposure to other biological agents ruled out (principal); F17.210 Nicotine dependence, cigarettes, uncomplicated; F41.9 Anxiety disorder, unspecified; Z88.1 Allergy status to other antibiotic agents; Z88.0 Allergy status to penicillin
CPT/HCPCS: 36415; 80053; 81001; 85025; 99283

== ENCOUNTER 2020-01-26 07:29 | Emergency (ER) | payer MEDICARE ==
[~2020-01-26] VITALS: Ht 175.3 cm; Wt 58.6 kg
[2020-01-26] MEDS ORDERED: CETI10TA24 PO (08:12)
--- NOTE | 2020-01-26 08:13 | PHYS DOC ---
Past History Past Medical History: Anxiety Past Surgical History: No Surgical History Smoking: Cigarettes Alcohol Use: None Drug Use: None Adult General Chief Complaint Chief Complaint: COUGH HPI HPI Patient is a 34-year-old healthy male who presents for a cough. Patient had scheduled visit with PCP today to be evaluated but was redirected to the ED after triage personnel heard of patient's presenting symptom of cough. Patient said onset was 3 days ago without known inciting event. Patient reports mild rhinorrhea, postnasal drip, and a dry cough. He has been afebrile, no COVID contacts, no recent travel. He has taken sore throat drops and lozenges without significant relief. Review of Systems Review of Systems Fourteen body systems of review of systems have been reviewed. See HPI for pertinent positives and negative responses, other bashir all other systems are negative, non-pertinent or non-contributory Allergies Allergies Allergies Coded Allergies Type Severity Reaction Last Updated Verified amoxicillin Allergy Severe tongue swells up/SOA/Rash 01/26/20 Yes Penicillins Allergy Intermediate Swelling 01/26/20 Yes Physical Exam Physical Exam Constitutional: Well developed, well nourished, no acute distress, non-toxic appearance. HENT: Normocephalic, atraumatic, bilateral external ears normal, bilateral middle ears unremarkable, bilateral TMs without signs of acute infection, oropharynx moist, no oral exudates, moderate postnasal drip present, external nose unremarkable, minimally engorged bilateral nasal turbinates without rhinorrhea or other discharge. Eyes: PERRLA, EOMI, conjunctiva normal, no discharge. Neck: Normal range of motion, no tenderness, supple, no stridor. Cardiovascular:Heart rate regular, sinus rhythm, no murmurs rubs or gallops Lungs & Thorax: Bilateral breath sounds clear to auscultation Abdomen: Bowel sounds normal, soft, no tenderness, no masses, no pulsatile masses. Nonsurgical abdomen, no peritoneal signs Skin: Warm, dry, no erythema, no rash. Back: No tenderness, no CVA tenderness. Extremities: No tenderness, no cyanosis, no clubbing, ROM intact, no edema. Neurologic: Alert and oriented X 3, grossly normal motor & sensory function, no focal deficits noted. Psychologic: Affect normal, judgement normal, mood normal. Current Patient Data Vital Signs Vital Signs Date Time Temp Pulse Resp B/P (MAP) Pulse Ox O2 Delivery O2 Flow Rate FiO2 8/3/20 07:30 97.7 96 18 124/63 (83) 97 Room Air EKG EKG [] Radiology/Procedures Radiology/Procedures [] Course & Med Decision Making Course & Med Decision Making Patient seen on immediate ED arrival Hemodynamically stable, comprehensive history and physical exam grossly unremarkable for serious pathology Discussed findings with patient, discussed little utility in further testing Most likely diagnosis URI, patient's presenting symptoms likely due to postnasal drip Supportive care advised, advised patient to start taking antihistamine and corticosteroid intranasally with close primary care follow-up Strict return precautions discussed with good understanding by patient, all questions and concerns addressed prior to ED departure Dragon Disclaimer Dragon Disclaimer This electronic medical record was generated, in whole or in part, using a voice recognition dictation system. Departure Departure: Impression: Primary Impression: Postnasal drip Additional Impression: URI (upper respiratory infection) Disposition: HOME/RESIDENCE PRIOR TO ADM Condition: STABLE Referrals: MALENA ROMO (PCP) Additional Instructions: What is a cough? A cough is an important reflex that helps clear out the body's airways (the trachea and bronchi, which are the tubes that carry air within the lungs). Coughing helps keep people from breathing things into the airways and lungs that could cause problems (figure 1). It is normal for people to cough once in a while. But sometimes, a cough is a symptom of an illness or condition. Some coughs are called "dry" coughs, because they don't bring up mucus (phlegm). Other coughs are called "wet" or "productive" coughs, because they do bring up mucus. Some coughs are mild and don't cause serious problems. Other coughs are severe and can cause trouble breathing. What causes a cough? In adults, causes of a cough include: ?Coronavirus 2019 (COVID-19) This is an infection caused by a virus called SARS-CoV-2. ?The common cold A cold can be caused by many different viruses. ?Smoking cigarettes ?Postnasal drip Postnasal drip is when mucus from the nose drips down or flows along the back of the throat. Postnasal drip can happen when people have: A cold Allergies A sinus infection The sinuses are hollow spaces in the bones of the face that open into the nose (figure 2). ?Lung conditions, like asthma and chronic obstructive pulmonary disease (COPD) Both of these conditions can make it hard to breathe. COPD is usually caused by smoking. ?Acid reflux Acid reflux is when the acid that is normally in your stomach backs up into your esophagus (the tube that carries food from your mouth to your stomach). ?A side effect from blood pressure medicines called "RICHIE inhibitors" Should I call my doctor or nurse? Call your doctor or nurse if you live in an area where people have COVID-19. They will ask you questions about your symptoms and whether you might be at risk. They can also tell you if you should get tested for the virus. You should also call your doctor or nurse right away if: ?You have trouble breathing or noisy breathing (wheezing). ?You have a fever or chest pain. ?You cough up blood, or yellow or green mucus. ?You cough so hard that it makes you vomit. ?Your cough gets worse or lasts longer than 10 days. ?You have a cough and have lost weight without trying. Will I need tests? Maybe. To figure out the cause of your cough, your doctor or nurse will talk with you and do an exam. Based on your symptoms and other factors, he or she might decide that you need tests. These might include: ?A swab from your inside your nose This can be tested for the virus that causes COVID-19. ?A chest X-ray ?Breathing tests Breathing tests involve breathing hard into a tube. These tests show how the lungs are working. ?Allergy skin tests to find out what you're allergic to For a skin test, the doctor puts a drop of the substance you might be allergic to on your skin and makes a tiny prick in the skin. Then he or she will watch your skin to see if it gets red and bumpy. ?A CT scan of your chest or sinuses A CT scan is an imaging test that creates pictures of the inside of the body. ?Lab tests on a sample of the mucus you cough up ?Using a "scope" to look inside your nose, sinuses, airway, or lungs ?Tests to check for acid reflux These usually involve having a thin tube put in your mouth and down into your esophagus. Is there anything I can do on my own to get rid of my cough? Yes. To help get rid of your cough, you can: ?Use a humidifier in your bedroom (if your cough is from a cold) ?Use an [id number]-emtfaez cough medicine, or suck on cough drops or hard candy ?Stop smoking, if you smoke ?If you have allergies, avoid the things you are allergic to (like pollen, dust, animals, or mold) If you have acid reflux, your doctor or nurse will tell you which lifestyle changes can help reduce symptoms. How is a cough treated? Treatment depends on the cause of your cough. For example: ?Some infections are treated with antibiotic medicines. If an infection is caused by bacteria, doctors can treat it with antibiotics. If an infection is caused by the flu virus, a different medicine might help. If the infection is caused by another virus (such as the common cold), antibiotics will not help. ?Postnasal drip is treated with different kinds of medicines that can come as a pill or nose spray. ?Asthma and COPD are usually treated with medicines that people breathe into their lungs (called "inhaler medicines"). ?Acid reflux can be treated with medicine to reduce or block stomach acid. ?If you have a cough as a side effect from an RICHIE inhibitor, your doctor can switch your medicine. If the cause of your cough is not clear, your doctor might prescribe medicine to make your cough less severe. But these medicines have side effects, and doctors usually recommend them only if nothing else has worked. Scripts Cetirizine Hcl (ZYRTEC) 10 Mg Tablet 1 TAB PO DAILY for Rhinitis, #30 TAB 2 Refills Prov: MARS ROBLERO DO 01/26/20 Justification of Admission: Justification of Admission: Justification of Admission Dx: N/A Problem Qualifiers MARS ROBLERO DO Jan 26, 2020 08:13
[2020-01-26 08:22] VITALS: BP 107/68
== END 2020-01-26 08:24 | disposition home or self-care (01) ==
LOC: ER 07:35
DX: J06.9 Acute upper respiratory infection, unspecified (principal); R09.82 Postnasal drip; F41.9 Anxiety disorder, unspecified; F17.210 Nicotine dependence, cigarettes, uncomplicated; Z88.0 Allergy status to penicillin; Z88.1 Allergy status to other antibiotic agents
CPT/HCPCS: 99282

== ENCOUNTER 2020-08-30 15:02 | Emergency (ER) | payer MEDICARE, OTHER ==
[~2020-08-30] VITALS: Ht 172.7 cm; Wt 57.7 kg
[~2020-08-30 15:02] MED LIST changes: +CETI10TA74 PO; -CLIN150C14 PO; +CLIN150C15 PO; -CLIN300C8 PO; +CLIN300C9 PO; +NAPR-699 PO; -NAPR250T6 PO
[2020-08-30 15:17] VITALS: BP 103/72
--- NOTE | 2020-08-30 16:09 | PHYS DOC ---
Past History Past Medical History: Other Additional Past Medical Histor: PRE DM Past Surgical History: No Surgical History Smoking: Cigarettes Alcohol Use: None Drug Use: None General Adult EDM: Chief Complaint: BACK PAIN OR INJURY HPI: HPI: Patient is a 35-year-old male who presents with back pain after moving a box at work today. Patient states when he twisted to put the box down is when he started having pain in the middle of his back. Patient states incident occurred 1 hour ago. Patient denies taking anything prior to arrival. Patient is able to ambulate and walked into the emergency room on his own. Denies health history. Review of Systems: Review of Systems: Constitutional: Denies fever or chills Eyes: Denies change in visual acuity HENT: Denies nasal congestion or sore throat Respiratory: Denies cough or shortness of breath Cardiovascular: Denies chest pain or edema GI: Denies abdominal pain, nausea, vomiting, bloody stools or diarrhea : Denies dysuria Musculoskeletal: Reports right-sided mid back pain Integument: Denies rash Neurologic: Denies headache, focal weakness or sensory changes Endocrine: Denies polyuria or polydipsia Lymphatic: Denies swollen glands Psychiatric: Denies depression or anxiety Allergies: Allergies: Allergies Coded Allergies Type Severity Reaction Last Updated Verified amoxicillin Allergy Severe tongue swells up/SOA/Rash 08/30/20 Yes Penicillins Allergy Intermediate Swelling 08/30/20 Yes Physical Exam: PE: Constitutional: Well developed, well nourished, no acute distress, non-toxic appearance. [] HENT: Normocephalic, atraumatic, bilateral external ears normal, oropharynx moist, no oral exudates, nose normal. [] Eyes: PERRLA, EOMI, conjunctiva normal, no discharge. [] Neck: Normal range of motion, no tenderness, supple, no stridor. [] Cardiovascular:Heart rate regular rhythm, no murmur [] Lungs & Thorax: Bilateral breath sounds clear to auscultation [] Abdomen: Bowel sounds normal, soft, no tenderness, no masses, no pulsatile masses. [] Skin: Warm, dry, no erythema, no rash. [] Back: Right-sided tenderness, no CVA tenderness. [] Extremities: No tenderness, no cyanosis, no clubbing, ROM intact, no edema. [] Neurologic: Alert and oriented X 3, normal motor function, normal sensory function, no focal deficits noted. [] Psychologic: Affect normal, judgement normal, mood normal. [] Current Patient Data: Vital Signs: Vital Signs Date Time Temp Pulse Resp B/P (MAP) Pulse Ox O2 Delivery O2 Flow Rate FiO2 08/30/20 15:17 96.5 89 16 103/72 (82) 99 Room Air EKG: EKG: [] Radiology/Procedures: Radiology/Procedures: [] Heart Score: C/O Chest Pain: No Risk Factors: Risk Factors: DM, Current or recent (<one month) smoker, HTN, HLP, family history of CAD, obesity. Risk Scores: Score 0 - 3: 2.5% MACE over next 6 weeks - Discharge Home Score 4 - 6: 20.3% MACE over next 6 weeks - Admit for Clinical Observation Score 7 - 10: 72.7% MACE over next 6 weeks - Early Invasive Strategies Course & Med Decision Making: Course & Med Decision Making Pertinent Labs and Imaging studies reviewed. (See chart for details) [] Patient given IM Toradol. Sent home with ibuprofen and Flexeril. Patient states "this is the second time I have hurt my back this year at work". Dis cussed with the patient for rest and ice to area of discomfort. Dragon Disclaimer: Gabino Disclaimer: This electronic medical record was generated, in whole or in part, using a voice recognition dictation system. Departure Departure: Impression: Primary Impression: Back pain Qualified Codes: M54.6 - Pain in thoracic spine Disposition: 01 DC HOME SELF CARE/HOMELESS Condition: STABLE Referrals: MALENA ROMO (PCP) Patient Instructions: Back Pain, Adult Additional Instructions: EMERGENCY DEPARTMENT GENERAL DISCHARGE INSTRUCTIONS Thank you for coming to [facility] (ED) today and trusting us with you care. We trust that you had a positivie experience in our Emergency Department. If you wish to speak to the department management, you may call the director at [phone]. YOUR FOLLOW UP INSTRUCTIONS ARE FOLLOWS: 1. Do you have a private Doctor? If you do not have a private doctor, please ask for a resource list of physicians or clinics that may be able to assist you with follow up care. 2. The Emergency Physician has interpreted your x-rays. The X-Ray specialist will also review them. If there is a change in the findings, you will be notified in 48 hours when at all possible. 3. A lab test or culture has been done, your results will be reviewed and you will be notified if you need a change in treatment. ADDITIONAL INSTRUCTIONS AND INFORMATION: 1. Your care today has been supervised by a physician who is specially trained in emergency care. Many problems require more than one evaluation for a complete diagnosis and treatment. We recommend that you schedule your follow up appointment as recommended to ensure complete treatment of you illness or injury. If you are unable to obtain follow up care and continue to have a problem, or if your condition worsens, we recommend that you return to the ED. 2. We are not able to safely determine your condition over the phone nor are we able to give sound medical advice over the phone. For these safety reasons, if you call for medical advice we will ask you to come to the ED for further evaluation. 3. If you have any questions regarding these discharge instructions please call the ED at [phone]. SAFETY INFORMATION: In the interest of safety, wellness, and injury prevention; we encourage you to wear your sealbelt, if you smoke; quite smoking, and we encourage family to use a protective helmet for bicycling and other sporting events that present an increased risk for head injury. IF YOUR SYMPTOMS WORSEN OR NEW SYMPTOMS DEVELOP, OR YOU HAVE CONCERNS ABOUT YOUR CONDITION; OR IF YOUR CONDITION WORSENS WHILE YOU ARE WAITING FOR YOUR FOLLOW UP APPOINTMENT; EITHER CONTACT YOUR PRIMARY CARE DOCTOR, THE PHYSICIAN WHOSE NAME AND NUMBER YOU WERE GIVEN, OR RETURN TO THE ED IMMEDIATELY. Scripts Cyclobenzaprine Hcl (CYCLOBENZAPRINE HCL) 10 Mg Tablet 1 TAB PO TID for pain, #30 TAB Prov: KAT PHILLIPS APRN 08/30/20 Ibuprofen (IBUPROFEN) 200 Mg Tablet 600 MG PO QIDPRN PRN for PAIN, #15 TAB Prov: KAT PHILLIPS APRN 08/30/20 KAT PHILLIPS APRN Aug 30, 2020 16:09
[2020-08-30] MEDS ORDERED: CYCL-331 PO (16:11)
[2020-08-30] MEDS ORDERED: IBUP-1673 PO (16:11)
[2020-08-30] MEDS ORDERED: KETOROLAC 30 MG/ML VIAL. IM ONE (16:15)
== END 2020-08-30 16:20 | disposition home or self-care (01) ==
LOC: ER 15:02
DX: M54.6 Pain in thoracic spine (principal); F17.210 Nicotine dependence, cigarettes, uncomplicated; Z88.0 Allergy status to penicillin; Z88.1 Allergy status to other antibiotic agents
CPT/HCPCS: 96372; 99283; J1885

== ENCOUNTER 2020-09-17 11:21 | Emergency (ER) | payer MEDICARE, OTHER ==
[~2020-09-17] VITALS: Ht 172.7 cm; Wt 57.7 kg
[~2020-09-17 11:21] MED LIST changes: +IBUP-1673 PO
--- NOTE | 2020-09-17 11:39 | PHYS DOC ---
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 States full relief with hydrocodone. Reports around midnight chest pain returned, right-sided upper chest that was sharp, stabbing and radiated down his right arm with associated dizziness and lightheadedness. States he took Xanax for this and fell asleep. Thought he was having an " anxiety attack." States he woke up in the chest pain was persistent. Took his blood pressure and it was 160/80. Denies any cocaine, methamphetamine abuse or IV drug use. States he had similar symptoms while he was at work 2 years ago was treated with nitro with EMS with no relief. [facility] with anxiety and symptoms improved with Ativan. Patient has no personal history family history of connective tissue disorders, early summer fragments Danlos, hypercoagulable state, ACS or CAD, sudden under the age of 50 or cardiac arrhythmias. Father with end-stage renal disease and mother with hypertension. Reports MS runs in his cousins. Review of Systems: Review of Systems: Constitutional: Denies fever or chills Eyes: Denies change in visual acuity HENT: Denies nasal congestion or sore throat Respiratory: Denies cough or shortness of breath Cardiovascular: Denies chest pain or edema GI: Denies abdominal pain, nausea, vomiting, bloody stools or diarrhea : Denies dysuria Musculoskeletal: Denies back pain or joint pain Integument: Denies rash Neurologic: Denies headache, focal weakness or sensory changes Endocrine: Denies polyuria or polydipsia Lymphatic: Denies swollen glands Psychiatric: Denies depression or anxiety, denies suicidal or homicidal ideations Allergies: Allergies: Allergies Coded Allergies Type Severity Reaction Last Updated Verified amoxicillin Allergy Severe tongue swells up/SOA/Rash 09/17/20 Yes Penicillins Allergy Intermediate Swelling 09/17/20 Yes Physical Exam: PE: Constitutional: Well developed, well nourished, no acute distress, non-toxic appearance. HENT: Normocephalic, atraumatic, Eyes: EOMI, conjunctiva normal, no discharge. Neck: Normal range of motion, supple, Cardiovascular: S1/2 present, regular rhythm Lungs & Thorax: Speaking in full sentences, bilateral equal chest rise, no tachypnea or increased work of breathing Abdomen: soft, no tenderness, Skin: Warm, dry, no erythema, no rash. [] Back: No tenderness, no CVA tenderness. [] Extremities: No tenderness, no cyanosis, no lower extremity edema Neurologic: Alert and oriented X 3, normal motor function, normal sensory function, no focal deficits noted. [] Psychologic: Affect normal, judgement normal, mood-slightly anxious Current Patient Data: Vital Signs: Vital Signs Date Time Temp Pulse Resp B/P (MAP) Pulse Ox O2 Delivery O2 Flow Rate FiO2 09/17/20 11:27 97.4 82 16 123/68 (86) 97 Room Air EKG: EKG: Sinus rhythm 86 bpm, no axis deviation, normal intervals, no T wave inversions, no ST elevations or ST depressions Radiology/Procedures: Radiology/Procedures: IMAGING REPORT Signed PATIENT: SALEEM ANTHONY LACCOUNT: [id number] : 1985 LOCATION: ER AGE: 35 SEX: M EXAM STATUS: REG ER ORD. PHYSICIAN: MALENA VALLE DO REASON: Mid chest pain, back pain. PROCEDURE: CHEST PA & LATERAL XR CHEST 2V History: Reason: Mid chest pain, back pain. / Spl. Instructions: / History: Comparison: April 15, 2019 Findings: No consolidation or pleural effusion. Normal heart size. No pneumothorax. Hyperinflation. Impression: 1. No acute cardiopulmonary process. 2. Hyperinflation. Electronically signed by: Evans Bhakta DO (09/17/2020 12:01 PM) [id number] DICTATED AND SIGNED BY: EVANS BHAKTA DO DATE: 09/17/20 1159 CC: MALENA ROMO; VOHS,MALENA M DO ~MTH0 0 Impressions: PERC rule 0 criteria No need for further workup, as <2% chance of PE. If no criteria are positive and clinicians pre-test probability is <15%, PERC Rule criteria are satisfied. Heart Score: C/O Chest Pain: Yes HEART Score for Chest Pain: HEART Score for Chest Pain Response (Comments) Value History Slighlty/Non-Suspicious 0 ECG Normal 0 Age < 45 0 Risk Factors 1 or 2 Risk Factors 1 Troponin < Normal Limit 0 Total 1 Risk Factors: Risk Factors: DM, Current or recent (<one month) smoker, HTN, HLP, family history of CAD, obesity. Risk Scores: Score 0 - 3: 2.5% MACE over next 6 weeks - Discharge Home Score 4 - 6: 20.3% MACE over next 6 weeks - Admit for Clinical Observation Score 7 - 10: 72.7% MACE over next 6 weeks - Early Invasive Strategies Course & Med Decision Making: Course & Med Decision Making Pertinent Labs and Imaging studies reviewed. (See chart for details) Concern for atypical chest pain in a low risk for mace pt, perc rule negative, d-dimer wnl and known opiod and benzo use. I suspect more anxiety-related discomfort. Patient is hemodynamically stable with no uncontrolled hypertension. Symptoms have been present for more than 12 hours. No cocaine u se. Will discharge home with strict ED return precautions were given for syncope, neurologic deficits, severe pain described as tearing or ripping in the chest or back or chest pressure with nausea, vomiting and diaphoresis.. Encouraged urgent outpatient follow-up with PMD and cardiology as needed for outpatient evaluation. Life-threatening processes were considered but are low s uspicion at this time, given history, physical exam and ED workup. Pt was educated on all prescription medications and adverse effects. All patient's questions were answered and pt was stable at time of discharge. Life/limb-threatening differential includes but is not limited to, acute myocardial infarction, aortic dissection, congestive heart failure, esophageal injury including rupture, surgical abdomen, arrhythmia, cardiomyopathy, myocarditis, pericarditis, peptic ulcer disease, pneumomediastinum, pneumonia, pneumothorax, pulmonary embolus, unstable angina, rib fracture, contusion, pericardial tamponade or effusion, traumatic injury including mediastinal hemorrhage or hematoma, or pulmonary contusion. I spoken with the patient and her caregivers. I explained the patient's condition, diagnoses and treatment plan based on the information available to me at this time. I have answered the patient and her caregiver's questions and addressed any concerns. The patient and her caregivers have a good understa nding of patient's diagnosis, condition and treatment plan as can be expected at this point. Vital signs have been stable. Patient's condition is stable and appropriate for discharge from the emergency department. Patient will pursue further outpatient evaluation with primary care physician or other designated or consulting physician as outlined in the discharge instructions. The patient and/or caregivers are agreeable to this plan of care and follow-up instructions have been explained in detail. The patient and/or caregivers have received these instructions in written form and have expressed an understanding of the discharge instructions. The patient and/or caregivers are aware that any significant change of condition or worsening of symptoms should prompt immediate return to this or the closest emergency department or call to 281. Gabino Disclaimer: Gabino Disclaimer: This electronic medical record was generated, in whole or in part, using a voice recognition dictation system. Departure Departure: Impression: Primary Impression: Atypical chest pain Additional Impression: Anxiety Disposition: 01 DC HOME SELF CARE/HOMELESS Condition: STABLE Referrals: MALENA ROMO (PCP) 2-3 days for re-evaluation Patient Instructions: Anxiety and Panic Attacks, Chest Pain (Nonspecific) Additional Instructions: FOLLOW UP WITH CARDIOLOGY: [facility] [address] [place] [address] [place] [facility] [address] [place] [address] FOLLOW UP WITH PSYCHIATRY: [facility] [address] [facility] [address] [place] [address] [facility] [address] [place] [address] Ollie POLANCO [address], [facility] [address] [place] [address] EMERGENCY DEPARTMENT GENERAL DISCHARGE INSTRUCTIONS Thank you for coming to [facility] (ED) today and trusting us with you care. We trust that you had a positivie experience in our Emergency Department. If you wish to speak to the department management, you may call the director at [phone]. YOUR FOLLOW UP INSTRUCTIONS ARE FOLLOWS: 1. Do you have a private Doctor? If you do not have a private doctor, please ask for a resource list of physicians or clinics that may be able to assist you with follow up care. 2. The Emergency Physician has interpreted your x-rays. The X-Ray specialist will also review them. If there is a change in the findings, you will be notified in 48 hours when at all possible. 3. A lab test or culture has been done, your results will be reviewed and you will be notified if you need a change in treatment. ADDITIONAL INSTRUCTIONS AND INFORMATION: 1. Your care today has been supervised by a physician who is specially trained in emergency care. Many problems require more than one evaluation for a complete diagnosis and treatment. We recommend that you schedule your follow up appointment as recommended to ensure complete treatment of you illness or injury. If you are unable to obtain follow up care and continue to have a problem, or if your condition worsens, we recommend that you return to the ED. 2. We are not able to safely determine your condition over the phone nor are we able to give sound medical advice over the phone. For these safety reasons, if you call for medical advice we will ask you to come to the ED for further evaluation. 3. If you have any questions regarding these discharge instructions please call the ED at [phone]. SAFETY INFORMATION: In the interest of safety, wellness, and injury prevention; we encourage you to wear your sealbelt, if you smoke; quite smoking, and we encourage family to use a protective helmet for bicycling and other sporting events that present an increased risk for head injury. IF YOUR SYMPTOMS WORSEN OR NEW SYMPTOMS DEVELOP, OR YOU HAVE CONCERNS ABOUT YOUR CONDITION; OR IF YOUR CONDITION WORSENS WHILE YOU ARE WAITING FOR YOUR FOLLOW UP APPOINTMENT; EITHER CONTACT YOUR PRIMARY CARE DOCTOR, THE PHYSICIAN WHOSE NAME AND NUMBER YOU WERE GIVEN, OR RETURN TO THE ED IMMEDIATELY. Scripts Hydroxyzine Hcl (HYDROXYZINE HCL) 25 Mg Tablet 1 TAB PO PRN Q6HRS PRN for ANXIETY / AGITATION, #20 TAB 0 Refills Be careful as this medication may make you mildly tired. I recommend not driving on this medication or operating heavy machinery. Prov: MALENA VALLE DO 09/17/20 MALENA VALLE DO Sep 17, 2020 11:39
[2020-09-17 11:47] LABS: BASO % 1 % (0-3); EOS % 1 % (0-3); HEMATOCRIT 46.6 % (39.0-53.0); HEMOGLOBIN 15.8 g/dL (13.0-17.5); LYMPH # 1.4 x10^3/uL (1.0-4.8); LYMPH % 20 % (24-48); MEAN CORPUSCULAR HEMOGLOBIN 31 pg (25-35); MEAN CORPUSCULAR HGB CONC 34 g/dL (31-37); MEAN CORPUSCULAR VOLUME 90 fL (79-100); MONO # 0.6 x10^3/uL (0.0-1.1); MONO % 9 % (0-9); NEUT # 4.9 x10^3uL (1.8-7.7); NEUT % 69 % (31-73); PLATELET COUNT 269 x10^3/uL (140-400); RED BLOOD COUNT 5.16 x10^6/uL (4.30-5.70); RED CELL DISTRIBUTION WIDTH 13.3 % (11.5-14.5); WHITE BLOOD COUNT 7.1 x10^3/uL (4.0-11.0)
[2020-09-17 12:00] LABS: CALCIUM 9.1 mg/dL (8.5-10.1); CREATININE 0.9 mg/dL (0.7-1.3); POTASSIUM 4.5 mmol/L (3.5-5.1)
--- NOTE | 2020-09-17 12:03 | RAD ---
XR CHEST 2V History: Reason: Mid chest pain, back pain. / Spl. Instructions: / History: Comparison: April 15, 2019 Findings: No consolidation or pleural effusion. Normal heart size. No pneumothorax. Hyperinflation. Impression: 1. No acute cardiopulmonary process. 2. Hyperinflation. Electronically signed by: Evans Bhakta DO (09/17/2020 12:01 PM) [id number]
[2020-09-17 12:04] LABS: ALBUMIN 4.3 g/dL (3.4-5.0); ALBUMIN/GLOBULIN RATIO 1.5 (1.0-1.7); MAGNESIUM 2.4 mg/dL (1.8-2.4); TOTAL BILIRUBIN 0.4 mg/dL (0.2-1.0); TOTAL PROTEIN 7.1 g/dL (6.4-8.2)
[2020-09-17 12:09] LABS: BARBITURATES NEG (NEG); BENZODIAZEPINES POS (NEG); CANNABINOIDS NEG (NEG); COCAINE NEG (NEG); METHADONE NEG (NEG); OPIATES POS (NEG); PHENCYCLIDINE NEG (NEG)
[2020-09-17 12:11] LABS: AMPHETAMINE/METHAMPHETAMINE NEG (NEG)
--- NOTE | 2020-09-17 12:13 | EKG ---
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
[2020-09-17 13:03] VITALS: BP 109/75
[2020-09-17] MEDS ORDERED: HYDR25TA PO (13:09)
== END 2020-09-17 13:15 | disposition home or self-care (01) ==
LOC: ER 11:21
DX: R07.89 Other chest pain (principal); F41.9 Anxiety disorder, unspecified; M54.5 Low back pain; F17.210 Nicotine dependence, cigarettes, uncomplicated; Z88.0 Allergy status to penicillin; Z88.1 Allergy status to other antibiotic agents
CPT/HCPCS: 36415; 71046; 80053; 80307; 83690; 83735; 84484; 85025; 85379; 93005; 99285

== ENCOUNTER → 2020-12-22 | Outpatient (CLI) | payer OTHER ==
[~2020-12-22] MED LIST changes: +HYDR25TA PO
--- NOTE | 2020-12-22 16:06 | RAD ---
EXAM: Lumbar spine, 5 views. HISTORY: Pain. COMPARISON: None. FINDINGS: 5 views lumbar spine are obtained. There is no listhesis. The vertebral bodies are normal i n height and the disc spaces are preserved. IMPRESSION: No acute osseous finding. Electronically signed by: Audelia Rubin MD (12/22/2020 4:04 PM) [id number]
== END ==
LOC: RAD 15:44
PROVIDERS: ATTEND Physician Assistant
DX: M54.5 Low back pain (principal)
CPT/HCPCS: 72110

== ENCOUNTER 2021-05-06 13:35 | Emergency (ER) | payer OTHER ==
[~2021-05-06] VITALS: Ht 175.3 cm; Wt 56.8 kg
[~2021-05-06 13:35] MED LIST changes: +CLIN-95 PO; -CLIN150C15 PO; +CLIN150C16 PO; -CLIN300C9 PO; -CYCL-331 PO; +CYCL10TA19 PO; +ERYT1OIN3 OD; -ERYT1OIN6 OD
[2021-05-06 14:00] VITALS: BP 127/80
--- NOTE | 2021-05-06 15:05 | PHYS DOC ---
Past History Past Medical History: Anxiety, Other Additional Past Medical Histor: PRE DM (KAT PHILLIPS APRN) Past Surgical History: No Surgical History (KAT PHILLIPS APRN) Smoking: Cigarettes Alcohol Use: None Drug Use: None (KAT PHILLIPS APRN) General Adult EDM: Chief Complaint: LACERATION/AVULSION HPI: HPI: Patient is a 35-year-old male presents with laceration to left thumb. Patient was at work when he cut his thumb. Bleeding is controlled. Range of motion and sensation intact. Denies being on blood thinners. Unknown last tetanus. (KAT PHILLIPS APRN) Review of Systems: Review of Systems: ROS (KAT PHILLIPS APRN) Allergies: Allergies: Allergies Coded Allergies Type Severity Reaction Last Updated Verified amoxicillin Allergy Severe tongue swells up/SOA/Rash 09/17/20 Yes Penicillins Allergy Intermediate Swelling 09/17/20 Yes (KAT PHILLIPS APRN) Physical Exam: PE: Constitutional: Well developed, well nourished, no acute distress, non-toxic appearance. [] HENT: Normocephalic, atraumatic, bilateral external ears normal, oropharynx moist, no oral exudates, nose normal. [] Eyes: PERRLA, EOMI, conjunctiva normal, no discharge. [] Neck: Normal range of motion, no tenderness, supple, no stridor. [] Cardiovascular:Heart rate regular rhythm, no murmur [] Lungs & Thorax: Bilateral breath sounds clear to auscultation [] Abdomen: Bowel sounds normal, soft, no tenderness, no masses, no pulsatile masses. [] Skin: Half centimeter lack on left thumb, bleeding controlled Back: No tenderness, no CVA tenderness. [] Extremities: No tenderness, no cyanosis, no clubbing, ROM intact, no edema. Left thumbtenderness, range of motion is intact, sensations intact Neurologic: Alert and oriented X 3, normal motor function, normal sensory function, no focal deficits noted. [] Psychologic: Affect normal, judgement normal, mood normal. [] (KAT PHILLIPS APRN) Current Patient Data: Vital Signs: Vital Signs Date Time Temp Pulse Resp B/P (MAP) Pulse Ox O2 Delivery O2 Flow Rate FiO2 05/06/21 14:00 97.7 73 16 127/80 (96) 97 Room Air (KAT PHILLIPS APRN) EKG: EKG: [] (KAT PHILLIPS APRN) Radiology/Procedures: Radiology/Procedures: [] (KAT PHILLIPS APRN) Heart Score: C/O Chest Pain: No Risk Factors: Risk Factors: DM, Current or recent (<one month) smoker, HTN, HLP, family history of CAD, obesity. Risk Scores: Score 0 - 3: 2.5% MACE over next 6 weeks - Discharge Home Score 4 - 6: 20.3% MACE over next 6 weeks - Admit for Clinical Observation Score 7 - 10: 72.7% MACE over next 6 weeks - Early Invasive Strategies (KAT PHILLIPS APRN) Course & Med Decision Making: Course & Med Decision Making Pertinent Labs and Imaging studies reviewed. (See chart for details) [] 35-year-old presents with laceration to left thumb where he cut it at work. Bleeding controlled. Laceration is half a centimeter in length. Patient's tetanus status is unknown. Will update in the ER. No indication for sutures. Dermabond applied and wrapped in gauze. Advised patient to keep wound clean and dry. Discussed signs and symptoms of infection. Patient voices understanding of discharge instructions. (KAT PHILLIPS APRN) Dragon Disclaimer: Dragon Disclaimer: This electronic medical record was generated, in whole or in part, using a voice recognition dictation system. (KAT PHILLIPS APRN) Attending Co-Sign The patient was seen and interviewed as well as examined at the bedside. The chart was reviewed. The case was discussed. Agree with the plan of care. (SILVANO ANDERSON DO) Departure Departure: Impression: Primary Impression: Laceration Disposition: 01 HOME / SELF CARE / HOMELESS Condition: STABLE Referrals: MALENA ROMO (PCP) Patient Instructions: Laceration Care, Adult, [id number] Additional Instructions: You were seen in the emergency room for a laceration to your thumb. We are updating your tetanus vaccination. Follow-up with your PCP. Ring keep the wound clean and dry. The glue will come off on its own and 7 to 10 days. Follow-up with your PCP. Return to the emergency room you have worsening symptoms or concerns. EMERGENCY DEPARTMENT GENERAL DISCHARGE INSTRUCTIONS Thank you for coming to [facility] (ED) today and trusting us with you care. We trust that you had a positivie experience in our Emergency Department. If you wish to speak to the department management, you may call the director at [phone]. YOUR FOLLOW UP INSTRUCTIONS ARE FOLLOWS: 1. Do you have a private Doctor? If you do not have a private doctor, please ask for a resource list of physicians or clinics that may be able to assist you with follow up care. 2. The Emergency Physician has interpreted your x-rays. The X-Ray specialist will also review them. If there is a change in the findings, you will be notified in 48 hours when at all possible. 3. A lab test or culture has been done, your results will be reviewed and you will be notified if you need a change in treatment. ADDITIONAL INSTRUCTIONS AND INFORMATION: 1. Your care today has been supervised by a physician who is specially trained in emergency care. Many problems require more than one evaluation for a complete diagnosis and treatment. We recommend that you schedule your follow up appointment as recommended to ensure complete treatment of you illness or injury. If you are unable to obtain follow up care and continue to have a problem, or if your condition worsens, we recommend that you return to the ED. 2. We are not able to safely determine your condition over the phone nor are we able to give sound medical advice over the phone. For these safety reasons, if you call for medical advice we will ask you to come to the ED for further evaluation. 3. If you have any questions regarding these discharge instructions please call the ED at [phone]. SAFETY INFORMATION: In the interest of safety, wellness, and injury prevention; we encourage you to wear your sealbelt, if you smoke; quite smoking, and we encourage family to use a protective helmet for bicycling and other sporting events that present an increased risk for head injury. IF YOUR SYMPTOMS WORSEN OR NEW SYMPTOMS DEVELOP, OR YOU HAVE CONCERNS ABOUT YOUR CONDITION; OR IF YOUR CONDITION WORSENS WHILE YOU ARE WAITING FOR YOUR FOLLOW UP APPOINTMENT; EITHER CONTACT YOUR PRIMARY CARE DOCTOR, THE PHYSICIAN WHOSE NAME AND NUMBER YOU WERE GIVEN, OR RETURN TO THE ED IMMEDIATELY. KAT PHILLIPS APRN May 06, 2021 15:05 SILVANO ANDERSON DO May 08, 2021 10:18
[2021-05-06] MEDS ORDERED: IBUPROFEN 600 MG TABLET. PO ONE (15:15)
[2021-05-06] MEDS ORDERED: DIPH,PERTUSS(ACELL),TET VAC/PF 0.5 ML SYRINGE. VAX IM ONE (15:30)
== END 2021-05-06 15:28 | disposition home or self-care (01) ==
LOC: ER 13:35
DX: S61.012A Laceration without foreign body of left thumb without damage to nail, initial encounter (principal); Z88.0 Allergy status to penicillin; Z88.1 Allergy status to other antibiotic agents; W26.8XXA Contact with other sharp object(s), not elsewhere classified, initial encounter; Y93.89 Activity, other specified; Y92.89 Other specified places as the place of occurrence of the external cause; Y99.8 Other external cause status
CPT/HCPCS: 12001; 90471; 90715; 99283-25

== ENCOUNTER 2021-06-02 12:12 | Emergency (ER) | payer OTHER ==
[~2021-06-02] VITALS: Ht 175.3 cm; Wt 56.8 kg
[2021-06-02] MEDS ORDERED: MORPHINE SULFATE 2 MG/ML DISP.SYRIN. IV/SQ PRN (12:30)
[2021-06-02] MEDS ORDERED: NITROGLYCERIN SUBLINGUAL 0.4 MG BOTTLE OF 25. SL PRN (12:30)
[2021-06-02] MEDS ORDERED: ASPIRIN 325 MG TABLET PO ONE (12:30)
--- NOTE | 2021-06-02 12:33 | EKG ---
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
--- NOTE | 2021-06-02 12:52 | RAD ---
Single view of the chest. 06/02/2021 12:29 PM Indication: Reason: chest pain / Comparison: Chest radiograph September 17, 2020 Findings: There is no focal consolidation. There is no pleural effusion or pneumothorax. The cardiome diastinal silhouette and pulmonary vasculature are within normal limits. No acute osseous abnormaliti es are seen. Impression: No evidence of acute cardiopulmonary process. Electronically signed by: Jaren Ledezma MD (06/02/2021 12:49 PM) [id number]
[2021-06-02 13:12] LABS: ANION GAP 13 (6-14); BASO % 0 % (0-3); BLOOD UREA NITROGEN 12 mg/dL (8-26); BUN/CREATININE RATIO 13 (6-20); CALCIUM 8.7 mg/dL (8.5-10.1); CARBON DIOXIDE 23 mmol/L (21-32); CHLORIDE 106 mmol/L (98-107); CREATININE 0.9 mg/dL (0.7-1.3); EOS % 0 % (0-3); GFR 94.4; GLUCOSE 106 mg/dL (70-99); HEMATOCRIT 42.8 % (39.0-53.0); HEMOGLOBIN 14.5 g/dL (13.0-17.5); LYMPH % 18 % (24-48); MEAN CORPUSCULAR HEMOGLOBIN 31 pg (25-35); MEAN CORPUSCULAR HGB CONC 34 g/dL (31-37); MEAN CORPUSCULAR VOLUME 91 fL (79-100); MONO # 0.5 x10^3/uL (0.0-1.1); MONO % 8 % (0-9); NEUT % 73 % (31-73); PLATELET COUNT 239 x10^3/uL (140-400); RED CELL DISTRIBUTION WIDTH 13.1 % (11.5-14.5); SODIUM 142 mmol/L (136-145); WHITE BLOOD COUNT 5.5 x10^3/uL (4.0-11.0)
[2021-06-02 13:27] LABS: ALBUMIN 4.4 g/dL (3.4-5.0); ALBUMIN/GLOBULIN RATIO 1.9 (1.0-1.7); ALK PHOS 50 U/L (46-116); ALT (SGPT) 25 U/L (16-63); AST (SGOT) 16 U/L (15-37); MAGNESIUM 2.2 mg/dL (1.8-2.4); TOTAL BILIRUBIN 0.3 mg/dL (0.2-1.0); TOTAL PROTEIN 6.7 g/dL (6.4-8.2)
[2021-06-02 14:46] LABS: BILIRUBIN,URINE NEG (NEG); CLARITY,URINE CLEAR; COLOR,URINE YELLOW; GLUCOSE,URINE NEG (NEG); NITRITE,URINE NEG (NEG); UROBILINOGEN,URINE 0.2 mg/dL (0.2 mg/dL)
[2021-06-02 14:47] LABS: BACTERIA,URINE 0 /HPF (0-FEW); RBC,URINE OCC /HPF (0-2); SQUAMOUS EPITHELIAL CELL,UR FEW /LPF; WBC,URINE OCC /HPF (0-4)
--- NOTE | 2021-06-02 15:04 | PHYS DOC ---
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 Patient denies anything relieving the pain but states he is going through a lot of stress and this morning he had text conversation with the dad and this exacerbated his symptoms. He denies any shortness of breath. Denies any fever. Denies any family history of cardiac events below the age of 50. Reports previous history of similar chest pain and the stress. He states he is under a lot of stress right now. ([place] [employer]) Review of Systems Review of Systems Constitutional: Denies fever or chills [] Eyes: Denies change in visual acuity, redness, or eye pain [] HENT: Denies nasal congestion or sore throat [] Respiratory: Denies cough or shortness of breath [] Cardiovascular: Reports chest pain GI: Denies abdominal pain, nausea, vomiting, bloody stools or diarrhea [] : Denies dysuria or hematuria [] Musculoskeletal: Denies back pain or joint pain [] Integument: Denies rash or skin lesions [] Neurologic: Denies headache, focal weakness or sensory changes [] All other systems were reviewed and found to be within normal limits, except as documented in this note. ([place] [employer]) Current Medications Current Medications Current Medications Medications (Trade) Dose Ordered Sig/Alexei Start Time Stop Time Status Last Admin Dose Admin Aspirin (Sagrario Aspirin) 325 mg 1X ONCE 06/02/21 12:30 06/02/21 12:32 DC 06/02/21 12:30 325 MG Morphine Sulfate (Morphine 2mg Syringe) 2 mg PRN Q15MIN PRN 06/02/21 12:30 06/03/21 12:29 06/02/21 13:04 2 MG Nitroglycerin (Nitrostat) 0.4 mg PRN Q5MIN PRN 06/02/21 12:30 06/03/21 12:29 06/02/21 13:04 0.4 MG ([place]) Allergies Allergies Allergies Coded Allergies Type Severity Reaction Last Updated Verified amoxicillin Allergy Severe tongue swells up/SOA/Rash 09/17/20 Yes Penicillins Allergy Intermediate Swelling 09/17/20 Yes ([place] Physical Exam Physical Exam Constitutional: Well developed, well nourished, no acute distress, non-toxic appearance. [] HENT: Normocephalic, atraumatic, bilateral external ears normal, oropharynx moist, no oral exudates, nose normal. [] Eyes: PERRLA, EOMI, conjunctiva normal, no discharge. [] Neck: Normal range of motion, no tenderness, supple, no stridor. [] Cardiovascular:Heart rate regular rhythm, no murmur [] Lungs & Thorax: Bilateral breath sounds clear to auscultation [] Abdomen: Bowel sounds normal, soft, no tenderness, no masses, no pulsatile masses. [] Skin: Warm, dry, no erythema, no rash. [] Back: No tenderness, no CVA tenderness. [] Extremities: No tenderness, no cyanosis, no clubbing, ROM intact, no edema. [] Neurologic: Alert and oriented X 3, normal motor function, normal sensory function, no focal deficits noted. [] Psychologic: Affect normal, judgement normal, mood normal. [] ([place] Current Patient Data Vital Signs Vital Signs Date Time Temp Pulse Resp B/P (MAP) Pulse Ox O2 Delivery O2 Flow Rate FiO2 06/02/21 13:52 72 16 118/76 (90) 99 06/02/21 12:30 97.6 Room Air Lab Results Laboratory Tests Test 06/02/21 12:49 06/02/21 13:53 White Blood Count 5.5 x10^3/uL (4.0-11.0) Red Blood Count 4.70 x10^6/uL (4.30-5.70) Hemoglobin 14.5 g/dL (13.0-17.5) Hematocrit 42.8 % (39.0-53.0) Mean Corpuscular Volume 91 fL (79-100) Mean Corpuscular Hemoglobin 31 pg (25-35) Mean Corpuscular Hemoglobin Concent 34 g/dL (31-37) Red Cell Distribution Width 13.1 % (11.5-14.5) Platelet Count 239 x10^3/uL (140-400) Neutrophils (%) (Auto) 73 % (31-73) Lymphocytes (%) (Auto) 18 % (24-48) L Monocytes (%) (Auto) 8 % (0-9) Eosinophils (%) (Auto) 0 % (0-3) Basophils (%) (Auto) 0 % (0-3) Neutrophils # (Auto) 4.0 x10^3uL (1.8-7.7) Lymphocytes # (Auto) 1.0 x10^3/uL (1.0-4.8) Monocytes # (Auto) 0.5 x10^3/uL (0.0-1.1) Eosinophils # (Auto) 0.0 x10^3/uL (0.0-0.7) Basophils # (Auto) 0.0 x10^3/uL (0.0-0.2) Sodium Level 142 mmol/L (136-145) Potassium Level 4.0 mmol/L (3.5-5.1) Chloride Level 106 mmol/L (98-107) Carbon Dioxide Level 23 mmol/L (21-32) Anion Gap 13 (6-14) Blood Urea Nitrogen 12 mg/dL (8-26) Creatinine 0.9 mg/dL (0.7-1.3) Estimated GFR (Cockcroft-Gault) 94.4 BUN/Creatinine Ratio 13 (6-20) Glucose Level 106 mg/dL (70-99) H Calcium Level 8.7 mg/dL (8.5-10.1) Magnesium Level 2.2 mg/dL (1.8-2.4) Total Bilirubin 0.3 mg/dL (0.2-1.0) Aspartate Amino Transferase (AST) 16 U/L (15-37) Alanine Aminotransferase (ALT) 25 U/L (16-63) Alkaline Phosphatase 50 U/L (46-116) Creatine Kinase 85 U/L (39-308) Creatine Kinase MB (Mass) < 0.5 ng/mL (0.0-3.6) Creatine Kinase MB Relative Index % (0-4) Troponin I High Sensitivity 5 ng/L (4-75) HY-Oce-C-Type Natriuretic Peptide 56 pg/mL (0-124) Total Protein 6.7 g/dL (6.4-8.2) Albumin 4.4 g/dL (3.4-5.0) Albumin/Globulin Ratio 1.9 (1.0-1.7) H Urine Collection Type Unknown Urine Color Yellow Urine Clarity Clear Urine pH 7.5 Urine Specific [place] 1.025 Urine Protein Neg (NEG-TRACE) Urine Glucose (UA) Neg mg/dL (NEG) Urine Ketones (Stick) 15 mg/dL (NEG) Urine Blood Neg (NEG) Urine Nitrite Neg (NEG) Urine Bilirubin Neg (NEG) Urine Urobilinogen Dipstick 0.2 mg/dL (0.2 mg/dL) Urine Leukocyte Esterase Neg (NEG) Urine RBC Occ /HPF (0-2) Urine WBC Occ /HPF (0-4) Urine Squamous Epithelial Cells Few /LPF Urine Bacteria 0 /HPF (0-FEW) Urine Mucus Marked /LPF (PHAM ROSENTHAL APRN) EKG EKG [address] Anderson sinus rhythm heart rate 78 no STEMI [] (PHAM ROSENTHAL APRN) Radiology/Procedures Radiology/Procedures []PROCEDURE: PORTABLE CHEST 1V Single view of the chest. 06/02/2021 12:29 PM Indication: Reason: chest pain / Comparison: Chest radiograph September 17, 2020 Findings: There is no focal consolidation. There is no pleural effusion or pneumothorax. The cardiomediastinal silhouette and pulmonary vasculature are within normal limits. No acute osseous abnormalities are seen. Impression: No evidence of acute cardiopulmonary process. Electronically signed by: Jaren Gonzalez MD (06/02/2021 12:49 PM) [id number] DICTATED AND SIGNED BY: JAREN GONZALEZ MD DATE: 06/02/21 1249 CC: PHAM ROSENTHAL APRN; MALENA ROMO ~MTH0 0 (PHAM ROSENTHAL APRN) Heart Score C/O Chest Pain: Yes HEART Score for Chest Pain: HEART Score for Chest Pain Response (Comments) Value History Slighlty/Non-Suspicious 0 ECG Normal 0 Age < 45 0 Risk Factors No Risk Factors 0 Troponin < Normal Limit 0 Total 0 Risk Factors: Risk Factors: DM, Current or recent (<one month) smoker, HTN, HLP, family history of CAD, obesity. Risk Scores: Risk Factors: DM, Current or recent (<one month) smoker, HTN, HLP, family history of CAD, obesity. (PHAM ROSENTHAL APRN) Course & Med Decision Making Course & Med Decision Making Pertinent Labs and Imaging studies reviewed. (See chart for details) This is a 36-year-old male patient with history of anxiety presenting today complaining of chest pain. EKG is negative, cardiac work-up is negative. Patient reports he is going through a lot of stress right now. Patient feeling better after being in the ED for a while. Encouraged to get help for his stress. Discharge to home. (PHAM ROSENTHAL APRN) Dragon Disclaimer Dragon Disclaimer This electronic medical record was generated, in whole or in part, using a voice recognition dictation system. (PHAM ROSENTHAL APRN) Attending Co-Sign The patient was seen and interviewed as well as examined at the bedside. The chart was reviewed. The case was discussed. Agree with the plan of care. (SILVANO ANDERSON DO) Departure Departure: Impression: Primary Impression: Chest pain Disposition: HOME / SELF CARE / HOMELESS Condition: STABLE Referrals: MALENA ROMO (PCP) follow up next week BITA GUPTA MD follow up in one week Patient Instructions: Chest Pain (Nonspecific) Additional Instructions: You were evaluated in the emergency room for chest pain, your cardiac work-up is negative for any acute findings. Please follow-up with your primary care doctor as well as the provided hardwood flooring specialist in 1 week Problem Qualifiers Primary Impression: Chest pain Chest pain type: unspecified Qualified Codes: R07.9 - Chest pain, unspecified PHAM ROSENTHAL APRN Jun 02, 2021 15:04 SILVANO ANDERSON DO Jun 02, 2021 17:56
[2021-06-02 15:13] VITALS: BP 120/73
== END 2021-06-02 15:14 | disposition home or self-care (01) ==
LOC: ER 12:12
DX: R07.89 Other chest pain (principal); Z88.0 Allergy status to penicillin; Z88.1 Allergy status to other antibiotic agents
CPT/HCPCS: 36415; 71045; 80053; 81001; 82553; 83735; 83880; 84443; 84484; 85025; 93005; 96374; 99285; J2270